=== PATIENT | male | born 1950 | race Caucasian/White ===

== ENCOUNTER 2016-10-24 13:16 | Inpatient (IN) | payer MEDICARE ==
[~2016-10-24] VITALS: Ht 172.7 cm; Wt 115.5 kg
[~2016-10-24 13:16] MED LIST: CHOL200047 PO; FUR20 PO; HYDR-4003 PO; LOPE2CAP PO; MULT1CAP33 PO; NADO80TA PO; SPIR50TA2 PO
[2016-10-24 13:23] VITALS: BP 151/103; PULSE 94; RESP 16; O2SAT 96
[2016-10-24] MEDS ORDERED: 0.9% Sodium Chloride 1,000 ML IV ONE (15:20)
[2016-10-24] MEDS ORDERED: Pantoprazole Inj 80 MG, Pharmacy To Mix 1 EA in 0.9% Sodium Chloride 80 ML IV ONE ×2 (15:20)
[2016-10-24] MEDS ORDERED: Pantoprazole 4 mg/mL 10 mL Inj IVPUSH ONE (15:20)
[2016-10-24] MEDS ORDERED: Octreotide Inj 500 MCG in 0.9% Sodium Chloride 100 ML IV ONE (15:20)
--- NOTE | 2016-10-24 15:23 | ED.REPORT ---
HPI-GI Bleed Date of Service Oct 24, 2016 ED Provider: Loki Garcia DO The patient is a 66 year old male with history of cirrhosis of his liver and kidneys, chronic kidney disease, coronary artery disease, hypertension, and GI bleed, who presents to the emergency department complaining of bloody emesis. The patient has had increasing abdominal bloating and nausea. He denies abdominal pain, fever, chills, diarrhea, bloody stools. He has been taking his medication as prescribed. His last colonoscopy was in 2010. He denies recent aspirin, Ibuprofen or steroid use. Nursing Notes Stated Complaint: VOMITTING BLOOD Chief Complaint: Male Abdominal Pain Nursing Notes Reviewed: Yes Allergies: Coded Allergies: Penicillins (Verified Allergy, Intermediate, Rash; hives, 06/07/14) lisinopril (Verified Adverse Reaction, Mild, Cough, 06/07/14) losartan (Verified Adverse Reaction, Mild, Muscle aches, 06/07/14) Scheduled Cholecalciferol (Vitamin D3) (Vitamin D3) 2,000 Unit Capsule 6,000 UNIT PO DAILY Furosemide (Furosemide) 20 Mg Tab 40 MG PO DAILY Multivitamin (Multivitamins) 1 Each Capsule 1 EACH PO DAILY Nadolol (Nadolol) 80 Mg Tablet 80 MG PO DAILY Spironolactone (Spironolactone) 50 Mg Tablet 50 MG PO DAILY Scheduled PRN Hydrocodone-Acetaminophen 5-325 mg (Hydrocodone-Acetaminophen 5-325 mg) 1 Each Tablet 1 EACH PO Q6 PRN PRN For Pain Loperamide (Loperamide) 2 Mg Capsule 2-4 MG PO BID PRN PRN For Diarrhea or Loose Stool General Time Seen by Provider: 15:00 Chief Complaint Chief Complaint: Vomiting blood Hx Obtained From: Patient Arrived By: Walk-in Onset Occurred: 9 - 12 hours ago Symptom Duration: Intermittent Progression Since Onset: Intermittent Severity: Current: No pain currently Severity: Maximum: No pain Recent Healthcare: No recent doctor visit, No recent hospitalization Similar Sx Previous: No Past Medical History Past Medical History Cirrhosis of the liver and kidney of unknown etiology Coronary artery disease Hypertension Chronic kidney disaese Past Surgical History Colonoscopy Family History Noncontributory Smoking History Never Smoker Social History Other Social History: Local resident Ambulatory Status Independent Review of Systems Review of Systems Note: +abdominal bloating Constitutional: Denies: Chills, Fever GI: Reports: Hematemesis, Nausea, Vomiting, Denies: Abdominal pain, Bloody/tarry stool, Diarrhea Complete sys rev & neg: except as marked. Physical Exam Initial Vital Signs Vital Signs (First) Date Time Temp Pulse Resp B/P Pulse Ox O2 Delivery O2 Flow Rate FiO2 10/24/16 13:23 37.3 94 16 151/103 96 Room Air 10/24/16 16:00 2 Initial VS: Reviewed Head / Eyes: Atraumatic, Normocephalic, PERRL ENT: Mucous membranes moist, Conjunctiva normal, No scleral icterus Neck: Supple, Non-tender, Full range of motion Lymphatic: No lymphadenopathy Extremities: Vascular intact, Neuro intact Skin: Warm, Dry, No cyanosis Neurologic: Alert, Oriented, Nonfocal Psychiatric: Mood/affect normal, Behavior normal, Normal thought content General/Constitutional: Awake, Alert Respiratory / Chest: Atraumatic, Breath sounds NL, Breath sounds = bilat, No respiratory distress, No rales, No rhonchi, No wheezing Cardiovascular: Heart rate NL, Regular rhythm, Heart sounds NL, No murmurs, No rubs Abdomen: Non-tender, No guarding, No rebound Bowel Sounds / Distention: Positive: Distention moderate Rectal for Blood: Positive: Blood - occult heme +, Maroon stool Interpretation & Diagnostics Lab Results Interpretation Result Diagram: 10/24/16 1620 10/24/16 1405 Test 10/24/16 14:05 10/24/16 16:20 White Blood Count 7.1th/mm3 (3.8-10.1) Red Blood Count 3.27mil/mm3 (4.40-5.80) Mean Corpuscular Volume 104.9fL (81-100) Mean Corpuscular Hemoglobin 34.3pg (27.0-35.0) Mean Corpuscular Hemoglobin Concent 32.7% (32.0-37.0) Red Cell Distribution Width 14.5% (12.3-15.4) Platelet Count 122bil/L (150-400) Neutrophils (%) (Auto) 80.7% (40-74) Lymphocytes (%) (Auto) 8.8% (14-46) Monocytes (%) (Auto) 9.4% (4-12) Eosinophils (%) (Auto) 0.7% (0-5) Basophils (%) (Auto) 0.1% (0-3) Prothrombin Time 15.5sec (8.1-12.5) Prothromb Time International Ratio 1.44ratio Sodium Level 139mEq/L (134-144) Potassium Level 4.1mEq/L (3.5-5.2) Chloride Level 102mEq/L (97-108) Carbon Dioxide Level 26mmol/L (18-29) Blood Urea Nitrogen 28mg/dL (8-27) Creatinine 2.40mg/dL (0.76-1.27) Estimat Glomerular Filtration Rate 29mL/min (>59) Glucose Level 111mg/dL (60-99) Calcium Level 8.3mg/dL (8.5-10.1) Total Bilirubin 3.6mg/dL (0.0-1.2) Aspartate Amino Transf (AST/SGOT) 30U/L (0-50) Alanine Aminotransferase (ALT/SGPT) 25U/L (0-44) Alkaline Phosphatase 97U/L (25-160) Total Protein 7.7g/dL (6.4-8.4) Albumin 2.1g/dL (3.4-5.0) Hold Rm Top Tube Received (Received) Hemoglobin 9.7g/dL (13.8-17.2) Hematocrit 30.0% (41.0-50.0) ECG Interpretation ECG Interpretation: Sinus rhythm Inferior Q waves Low voltage Otherwise unremarkable Time: 14:48 Interpreted by: ED physician Re-Eval/Medical Decision Med Decision/Clinical Course Upper GI bleed with known esophageal varices, Protonix and octreotide drips are initiated. GI was consulted and saw the patient in the emergency department. Patient will be admitted. Source of Hx: Old records Re-Evaluation/Progress #1: Time of Eval: 15:41 Re-Evaluation/Progress Note: Discussed plan for admission. Re-Evaluation/Progress #2: Time of Eval: 16:37 Re-Evaluation/Progress Note: Dr. Ramírez is evaluating the patient. Consultation #1: Referral / Consult Name: Jelani Miller MD Call Returned at: 16:11 Note: Spoke with the on-call gunner mate. Consultation #2: Referral / Consult Name: Jimmy Ramírez MD Consulted With: Hospitalist Call Returned at: 16:17 Slot Editor: Will see patient, Agrees with eval, Agrees with plan, Accepts admit Counseled Regarding: Diagnosis, Lab results, Need for admission Discharge & Departure Impression: Primary Impression: Upper GI bleed Disposition: ADMITTED TO HOSPITAL Discharge Condition All VS Reviewed: Yes Condition: Stable Referrals: Artem Campo MD (PCP) Scribe Attestation Portions of this note were transcribed by Toshia Bishop. I, Dr. Garcia personally performed the history, physical exam and medical decision-making; I reviewed and confirmed the accuracy of the information in the transcribed note. Signed by: Jj Dial, 10/24/16 and [id number]. copies to: Artem Campo MD, Timothy S DO Oct 24, 2016 15:23 Toshia Bishop Oct 24, 2016 15:42
[2016-10-24 15:37] LABS: BASOPHILS % (AUTO) 0.1 % (0-3); EOSINOPHILS % (AUTO) 0.7 % (0-5); MONOCYTES % (AUTO) 9.4 % (4-12); Mean Corpuscular Hemoglobin 34.3 pg (27.0-35.0); Mean Corpuscular Volume 104.9 fL (81-100); NEUTROPHILS % (AUTO) 80.7 % (40-74); Platelet Count 122 bil/L (150-400)
[2016-10-24 15:55] LABS: INR 1.44 ratio
[2016-10-24 16:00] VITALS: BP 132/82; PULSE 82; RESP 11; O2SAT 99
[2016-10-24] MEDS ORDERED: levoFLOXacin Inj 750 MG in IV Premix 1 EACH IV ONE (16:15)
[2016-10-24] MEDS ORDERED: Ondansetron 2 mg/mL 2 mL Inj IVPUSH PRN (17:05)
[2016-10-24] MEDS: Pantoprazole Inj 80 MG in 0.9% Sodium Chloride 80 ML IV SCH (17:05)
[2016-10-24] MEDS: Octreotide Inj 500 MCG in 0.9% Sodium Chloride 99 ML IV SCH (17:05)
--- NOTE | 2016-10-24 17:31 | PCM.HPMED ---
Subjective Date of Service Oct 24, 2016 Primary Provider: Admitting Physician: Jimmy Ramírez MD Primary Care Physician: Artem Campo MD Attending Physician: Jimmy Ramírez MD Admit Status: From the Emergency Department, Admit to [facility], [facility] Telemetry Chief Complaint: Hematemesis History of Present Illness: This is a 66-year-old male with a known history of varices. The patient presents with 3 episodes of vomiting blood this morning. This is all dark blood. No melena. Some abdominal discomfort. He denies feeling lightheaded. His hematocrit was around 27 in ED. He denies any chest pain or dyspnea. He has a history of cirrhosis which is of unclear etiology. He denies history of alcohol abuse. He does have severe ascites. He has had endoscopy confirmed varices in the past. He denies any recent vomiting this afternoon. His bowel signs are stable. GI is going to see the patient who is already on octreotide as well as Protonix drip. The patient denies any chest pain. He has never had paracentesis. He has been on liver transplant list for about 7 years. He notes progressive fatigue over the last several months to year. He does have some baseline depression. He has been for approximately 7 years. Review of Systems: He denies headache, hearing loss or visual changes. He denies any palpitations. He does have some orthopnea and chronic pedal edema. No hematuria or dysuria. All else is reviewed and otherwise unremarkable except as noted in the history of present illness Allergies Coded Allergies: Penicillins (Verified Allergy, Intermediate, Rash; hives, 06/07/14) lisinopril (Verified Adverse Reaction, Mild, Cough, 06/07/14) losartan (Verified Adverse Reaction, Mild, Muscle aches, 06/07/14) Home Medications Cholecalciferol (Vitamin D3) (Vitamin D3) 2,000 Unit Capsule 6,000 UNIT PO DAILY Furosemide (Furosemide) 20 Mg Tab 40 MG PO DAILY Multivitamin (Multivitamins) 1 Each Capsule 1 EACH PO DAILY Nadolol (Nadolol) 80 Mg Tablet 80 MG PO DAILY Spironolactone (Spironolactone) 50 Mg Tablet 50 MG PO DAILY Scheduled PRN Hydrocodone-Acetaminophen 5-325 mg (Hydrocodone-Acetaminophen 5-325 mg) 1 Each Tablet 1 EACH PO Q6 PRN PRN For Pain Loperamide (Loperamide) 2 Mg Capsule 2-4 MG PO BID PRN PRN For Diarrhea or Loose Stool PMH 1. Cirrhosis with known varices 2. Chronic kidney disease stage III. 3. CAD. 4. Hypertension Surgical History Colonoscopy Family History Adopted, not available Social History Hx Alcohol Use: No Hx Substance Use: No Hx Tobacco Use: No Smoking Status: Never Smoker Living Arrangement: Alone Exam Vital Signs Vital Sign - Last Date Time Temp Pulse Resp B/P Pulse Ox O2 Delivery O2 Flow Rate FiO2 10/24/16 16:00 82 11 132/82 99 Nasal Cannula 2 10/24/16 13:23 37.3 Exam O 3. No distress. Fluent speech. Normal skull. Anicteric sclera, symmetric pupils Normal nose and ears. Oropharynx unremarkable no facial droop. Neck is supple. Normal thyroid. No adenopathy. Lungs are clear, normal effort. Heart is regular without murmur gallop or rub Abdomen is massively distended. No guarding or rebound. He has a medusa capitus on the umbilicus. Extremities and gross edema. The radial pulses. Joints not swollen or deformed. Motor strength is unremarkable. Skin is mildly jaundiced. There is no ecchymosis or petechiae. Normal affect Lab and Diagnostics Result Diagram: 10/24/16 1620 10/24/16 1405 Assessment & Plan 1. Presumed esophageal bleed, POA. Patient will be placed on octreotide and Protonix strips. GI is going to see him today and will perform endoscopy within the next 12 hours. The patient is nothing by mouth. Fluid resuscitation with saline. Levofloxacin for prophylaxis given his chronic ascites. 2. Liver cirrhosis. POA. Follow clinically. 3. Acute blood loss anemia. POA. Serial hematocrits and transfuse as needed. 4. CAD. POA. Currently compensated. Hold antiplatelet agents and other medications at this point. 5. Hypertension. POA. Follow clinically. Patient is full resuscitation. Inpatient status with a length of stay of over 2 nights anticipated Pain Evaluation: Adequate Pain Control Resuscitation Status: CPR: Attempt Resuscitation Time spent 45 minutes Jimmy Ramírez MD Oct 24, 2016 17:31
[2016-10-24 18:16] VITALS: BP 106/76; PULSE 72; RESP 18; O2SAT 98
[2016-10-24 18:42] VITALS: PULSE 73
[2016-10-24 19:53] VITALS: BP 106/69; PULSE 70; RESP 13; O2SAT 98
[2016-10-24] MEDS: 0.9% Sodium Chloride 1,000 ML IV SCH (19:57)
--- NOTE | 2016-10-24 20:58 | CONS ---
[address] [address] CONSULTATION REPORT PATIENT: HAIDER BRITT : 1950 MR#: [id number] ADMIT: 10/24/2016 JOB ID: [id number] DATE OF SERVICE: 10/24/2016 GASTROENTEROLOGY CONSULTATION: REASON FOR CONSULTATION: Hematemesis. HISTORY OF PRESENT ILLNESS: A 66-year-old male with a history of cirrhosis of unknown cause, chronic kidney disease, coronary artery disease status post [place] in 1999, hypertension, on the liver transplant list per the patient with a MELD score of 24, decompensated cirrhosis with esophageal varices grade 2-3 seen on upper endoscopy on October 31, 2010, mild portal hypertensive gastropathy, and hiatal hernia, who presents for a consultation for hematemesis x1 day. The patient states he had three episodes of coffee-ground emesis. The patient denies rectal bleeding such as bright red blood per rectum or melena. The patient denies abdominal pain, change in bowel habits, or unintentional weight loss. The patient had a EGD, as stated, back on October 31, 2010, which showed grade 2-3 esophageal varices without evidence of bleeding, portal hypertensive gastropathy with superficial mucosal erosions, and a hiatal hernia. The patient states he had a colonoscopy three years ago which showed a precancerous polyp. I have no records. The patient denies family history of colon cancer, inflammatory bowel disease, or celiac disease. The patient was admitted and found to have a PT 15.5, INR 1.44, hemoglobin of 11.2, hematocrit of 34, MCV 104, platelet count 122, white count of 7.1. BUN 20, creatinine 2.4, albumin of 2.1, total bili 3.6. The patient presents for further evaluation. PAST MEDICAL HISTORY: As stated above. PAST SURGERIES: None. ALLERGIES: PENICILLIN, LISINOPRIL, LOSARTAN. MEDICATIONS AT HOME: vitamin D3, Lasix 40 mg by mouth once a day, multivitamin, nadolol 80 mg by mouth once a day, spironolactone 50 mg by mouth once a day. SOCIAL HISTORY: Never smoked. Unknown IV drug use. No alcohol history. FAMILY HISTORY: Negative for colon cancer. REVIEW OF SYSTEMS: The patient denies headache, blurred vision. Positive for hematemesis. No abdominal pain, skin rashes, or joint pain. PHYSICAL EXAMINATION: Vital signs upon presentation: Temperature is 37.3, pulse of 94, blood pressure 151/103, respiratory rate 16, saturating 96% room air. General: No acute distress. HEENT: Head: No scars. Eyes: Positive bilateral scleral icterus. Throat: Supple. Lungs: Clear to auscultation. Abdomen: Soft, mildly distended, nontender. Diffuse normoactive bowel sounds. Positive for ascites. Extremities: No cyanosis, clubbing, or edema. LABORATORIES: Show a white count 7.1, hemoglobin 11.2, hematocrit 34, MCV 104, platelet count 122. PT 15.5, INR 1.4. Sodium 139, potassium 4.1, chloride 102, bicarb 26, BUN 28, creatinine 2.4, glucose 111. Calcium 8.3, total bili 3.6, AST 30, ALT 24, alk phos 97, albumin 2.1. The patient's last CT of the abdomen and pelvis with contrast was performed on July 23, 2010, which showed moderate ascites in the abdomen and pelvis, diffuse colonic diverticulosis, prominent nodes, status post cholecystectomy in the past. The lymph nodes were in the subcarinal region in the paraesophageal area. ASSESSMENT: This is a 66-year-old male with a history of cirrhosis of unknown cause, MELD score of 24 currently, decompensated with ascites and esophageal varices grade 2-3, portal hypertension gastropathy seen on upper endoscopy in 2010, chronic kidney disease, on the liver transplant list, coronary artery disease, and hypertension who presents here for hematemesis x1 day. Differential diagnosis includes esophageal variceal bleed, versus peptic ulcer disease, versus portal hypertensive gastropathy. The patient also states that he is due for a colonoscopy. RECOMMENDATIONS: 1. NPO except for medications. 2. Protonix drip and octreotide drip. 3. Levaquin for SBP prophylaxis given the patient has cirrhosis and a GI bleed. 4. EGD and colonoscopy with anesthesia scheduled for tomorrow at 8:30 a.m. 5. Serial hematocrits and serial abdominal exams.
--- NOTE | 2016-10-24 21:27 | NUR ---
Transfer to 2030 Pt alert and oriented. Transfer care to [facility]. Pt transfer with all belongings and medications. IV fluids, Protonix and Ocreotide gtt infusing at this time. Pt denies any pain/discomfort. No c/o nausea or vomiting noted/reported.
[2016-10-24 22:50] VITALS: BP 110/74; PULSE 74; RESP 16; O2SAT 99
[2016-10-25] VITALS (10 sets, daily range): BP systolic 97–112; BP diastolic 57–68; PULSE 66–97; RESP 14–20; O2SAT 96–99
[2016-10-25] MEDS: Pantoprazole Inj 80 MG in 0.9% Sodium Chloride 80 ML IV SCH (01:36)
[2016-10-25] MEDS: Octreotide Inj 500 MCG in 0.9% Sodium Chloride 99 ML IV SCH ×2 (01:37→13:10)
--- NOTE | 2016-10-25 05:15 | NUR ---
Rest/Infusions Assumed care of patient at 2120. A&Ox3, STORY; cooperative and appropriate with care. Octreotide and protonix gtts continuing. Patient denies nausea, vomiting, abdominal pain. Notes that over the last several weeks he has noticed an increase in heartburn at home and has sometimes been doubling the dose of his Tums to treat it. Patient resting in room overnight. Continue to monitor.
[2016-10-25] MEDS: 0.9% Sodium Chloride 1,000 ML IV SCH ×2 (05:52→23:04)
[2016-10-25 05:56] LABS: Mean Corpuscular Volume 105.7 fL (81-100)
[2016-10-25 05:57] LABS: BASOPHILS % (AUTO) 0.7 % (0-3); EOSINOPHILS % (AUTO) 5.3 % (0-5); MONOCYTES % (AUTO) 10.6 % (4-12); Mean Corpuscular Hemoglobin 34.2 pg (27.0-35.0); NEUTROPHILS % (AUTO) 69.3 % (40-74); Platelet Count 84 bil/L (150-400)
[2016-10-25] MEDS ORDERED: Lactated Ringer's 1,000 ML IV ONE (08:28)
--- NOTE | 2016-10-25 08:28 | PCM.HPANE ---
Patient Data Surgeon Admitting Provider:Jimmy Ramírez MD Attending Provider:Jimmy Ramírez MD Primary Care Physician:Artem Campo MD Other Provider: Reason for Visit Upper Gi Bleed Ht/WT & BMI Height (Feet): 5 Height (Inches): 8 Weight (Kilograms): 115.500 Body Mass Index Allergies Coded Allergies: Penicillins (Verified Allergy, Intermediate, Rash; hives, 06/07/14) lisinopril (Verified Adverse Reaction, Mild, Cough, 06/07/14) losartan (Verified Adverse Reaction, Mild, Muscle aches, 06/07/14) Past Anesthesia History Anesthesia History: Denies:: Abnormal Airway, Anesthesia Reactions, Difficult Intubation Diabetes History Hx Diabetes?: No (borderline) MRSA MRSA: No Medications Hypertension Medication: Yes Home Meds Incl Beta Doc: Yes Date Beta Doc Taken: Oct 25, 2016 Time Beta Doc Taken: 08:00 Reported Medications Multivitamin (Multivitamins)1 Each Capsule1 Each PO DAILY 06/03/16 Cholecalciferol (Vitamin D3) (Vitamin D3)2,000 Unit Capsule6,000 Unit PO DAILY 06/03/16 Spironolactone 50 Mg [id number] Mg PO DAILY 06/02/16 Furosemide 20 Mg Tab40 Mg PO DAILY 06/02/16 Nadolol 80 Mg [id number] Mg PO DAILY 06/06/14 Loperamide 2 Mg Capsule2-4 Mg PO BID PRN For Diarrhea or Loose Stool 06/06/14 Hydrocodone-Acetaminophen 5-325 mg 1 Each Tablet1 Each PO Q6 PRN For Pain 06/06/14 History History of ENT Problems?: Yes HEENT History: Positive for:: Sinus Problem (sinus infection in the past) Denies:: Cataracts Dysphagia Hx of Heart Problems?: Yes Cardiovascular History: Positive for:: Cardiac Surgery (PCI to RCA 2000 post [place]) Hypertension Denies:: Chest Pain Congestive Heart Failure Edema Heart Murmur Irregular Heartbeat Pacemaker Thrombophlebitis Hx of Respiratory Problem?: Yes Respiratory History: Denies:: Asthma COPD Chest Surgery Dyspnea Emphysema Hemoptysis Pneumonia Tuberculosis Hx Neurologic Problems?: No Hx of GI Problems?: Yes Gastrointestinal History: Positive for:: Gastrointestinal Bleeding (with this admission; esophageal reflux) Hepatitis (Type A) Denies:: Diverticulitis Gastroesphageal Reflux Heartburn Hiatal Hernia Rectal Bleeding Other GI Pertinent History: liver cirrhosis, on transplant list Hx of Problems?: No Genitourinary History: Denies:: HX of Hemodialysis Kidney Stones Urinary Tract Infection HX of Peritoneal Dialysis: No Male Hx: Denies:: Prostate Problems Scrotal Mass Testicular Surgery Hx Musculoskeletal Problems?: Yes Musculoskeletal History: Positive for:: Back Injury (L5S1 herniated disc repair) Denies:: Joint Replacement Musculoskeletal Trauma Hx of Psycho/Social Problems?: Yes Psycho Social History: Positive for:: Hx Depression Denies:: Anxiety Bipolar Disorder Suicide Attempt Hx Surgeries?: Yes (gall bladder, back sry) Hx Any Other Health Problems?: Yes Other History: Positive for:: Cancer (Skin) Hospitalization (gall bladder; herniated disc lumbar; GI bleed) Denies:: Endocrine Disease Thyroid Disease History Blood Transfusions: Positive for:: Accept Blood Products? Blood Transfusions Denies:: Blood Transfuse Reaction Hx Diabetes: No (borderline) Hx Alcohol Use: NoHx Substance Use: No Smoking Status: Never Smoker Have You Smoked inLast 12 mo: No Stop/Bang Treated for Sleep Apnea?: No Do You Have a CPAP Machine?: No S-Snoring: Do You Snore Loudly: No T-Tired: feel tired, fatigued: Yes O-Obsered: Observed not breath: No P-Blood Pressure: treated: Yes B- Body Mass Index > 35 kg/m2: Yes A- Age over 50: Yes N- Neck Large Circumference: No G- Gender Male: Yes LATRELL Total Score: 5 LATRELL Risk Assessment: High Risk, =/>3 Yes LATRELL Category 4 OutPt Procedure: Yes Risk Assessment Category Category 1A: Patient has history of documented sleep apnea, and HAS NOT received any narcotic, sedative or anesthesia administration during this stay. Category 1B: Patient has history of documented sleep apnea, and HAS received any narcotic , sedative or anesthesia administration during this stay Category 2: Patient has SUSPECTED Obstructive Sleep Apnea, and HAS received any narcotic , sedative or anesthesia administration during this stay. Category 3: Patient has SUSPECTED Obstructive Sleep Apnea and HAS NOT received narcotic, sedative or anesthesia administration during this stay. Category 4: Outpatient in Procedural Areas with known sleep apnea or who screen positive for High Risk via the STOP/BANG questionnaire. Exam Exam Vital Signs Vital Signs Date Time Temp Pulse Resp B/P Pulse Ox O2 Delivery O2 Flow Rate FiO2 10/25/16 07:58 Supplement Oxygen 10/25/16 07:58 37.6 68 18 108/66 98 Room Air 10/25/16 04:46 69 10/25/16 03:10 36.6 97 16 112/62 98 Room Air General Appearance: Alert, Oriented X3, Cooperative, No Acute Distress HEENT/AIRWAY: MP 2 Lungs: Clear to Auscultation, Normal Air Movement Heart: Exam Unremarkable, Regular Rate/Rhythm, No Murmurs/Rubs/Gallops Meds/Labs/Diagnostics Admission Meds Current Medications Pantoprazole 80 mg 80 mg STAT ONCE IVPUSH Last administered on 10/24/16at 15: 42; Start 10/24/16 at 15:20; Stop 10/24/16 at 15:21; Status DC Pantoprazole/ Miscellaneous/ Sodium Chloride (Protonix Inj/ Pharmacy To Mix/ Normal Saline) 100 ml @ 10 mls/hr ONCE ONCE IV Last administered on at 17:00; Start 10/24/16 at 15:20; Stop 10/25/16 at 01:19; Status DC Octreotide Acetate 50 mcg 50 mcg ONCE ONCE IVPUSH Last administered on at 16:25; Start 10/24/16 at 15:20; Stop 10/24/16 at 15:21; Status DC Octreotide Acetate 500 mcg/ Sodium Chloride 101 ml @ 10.1 mls/hr ONCE ONCE IV Last administered on 10/24/16at 16:40; Start 10/24/16 at 15:20; Stop at 01:19; Status DC Sodium Chloride 1,000 ml @ 0 mls/hr Q0M ONCE IV Last administered on at 15:42; Start 10/24/16 at 15:20; Stop 10/24/16 at 15:21; Status DC Levofloxacin/ Dextrose 750 mg/ Premix 150 ml @ 100 mls/hr ONCE ONCE IV Last administered on 10/24/16at 17:04; Start 10/24/16 at 16:15; Stop 10/24/16 at 17 :44; Status DC Sodium Chloride 1,000 ml @ 100 mls/hr Q10H IV Last administered on 10/25/16at 05:52; Start 10/24/16 at 17:04 Octreotide Acetate 500 mcg/ Sodium Chloride 100 ml @ 10 mls/hr Q10H IV Last administered on 10/25/16at 01:37; Start 10/24/16 at 17:05 Pantoprazole/ Sodium Chloride (Protonix Inj/ Normal Saline) 100 ml @ 10 mls/hr Q10H IV Last administered on 10/25/16at 01:36; Start 10/24/16 at 17:05 Labs Test 10/24/16 14:05 10/25/16 05:20 Prothrombin Time 15.5sec (8.1-12.5) Prothromb Time International Ratio 1.44ratio Hold Rm Top Tube Received (Received) White Blood Count 4.2th/mm3 (3.8-10.1) Red Blood Count 2.81mil/mm3 (4.40-5.80) Hemoglobin 9.6g/dL (13.8-17.2) Hematocrit 29.7% (41.0-50.0) Mean Corpuscular Volume 105.7fL (81-100) Mean Corpuscular Hemoglobin 34.2pg (27.0-35.0) Mean Corpuscular Hemoglobin Concent 32.3% (32.0-37.0) Red Cell Distribution Width 14.1% (12.3-15.4) Platelet Count 84bil/L (150-400) Neutrophils (%) (Auto) 69.3% (40-74) Lymphocytes (%) (Auto) 14.1% (14-46) Monocytes (%) (Auto) 10.6% (4-12) Eosinophils (%) (Auto) 5.3% (0-5) Basophils (%) (Auto) 0.7% (0-3) Sodium Level 141mEq/L (134-144) Potassium Level 4.7mEq/L (3.5-5.2) Chloride Level 107mEq/L (97-108) Carbon Dioxide Level 25mmol/L (18-29) Blood Urea Nitrogen 34mg/dL (8-27) Creatinine 2.79mg/dL (0.76-1.27) Estimat Glomerular Filtration Rate 24mL/min (>59) Glucose Level 84mg/dL (60-99) Calcium Level 7.7mg/dL (8.5-10.1) Total Bilirubin 3.7mg/dL (0.0-1.2) Aspartate Amino Transf (AST/SGOT) 24U/L (0-50) Alanine Aminotransferase (ALT/SGPT) 18U/L (0-44) Alkaline Phosphatase 77U/L (25-160) Total Protein 6.5g/dL (6.4-8.4) Albumin 1.8g/dL (3.4-5.0) Plan Impression Patient chart reviewed, patient interviewed and anesthestic plan with risks, benefits, and alternatives discussed, and informed consent obtained. ASA Physical Status: ASA3 Severe Disease (GI bleeding) Anesthetic Plan: MAC Bene/Risks/Altern/Consents: Yes HP Complete Prior to Induction: Yes Mckinley Morales MD Oct 25, 2016 08:28
--- NOTE | 2016-10-25 10:40 | ENDO ---
[address] [address] ENDOSCOPY PROCEDURE PATIENT: HAIDER BRITT : 1950 MR#: [id number] ADMIT: 10/24/2016 JOB ID: [id number] DATE: 10/25/2016 TYPE OF OPERATION: Esophagogastroduodenoscopy with biopsy. PREOPERATIVE DIAGNOSIS: Gastrointestinal bleed. POSTOPERATIVE DIAGNOSIS(ES): 1. Grade 2 esophageal varices without recent stigmata of bleed or red jaclyn sign. 2. Distal erosive esophagitis. 3. Esophageal ulcer, clean based, nonbleeding. 4. Mild portal hypertensive gastropathy. 5. Mild nonerosive gastritis. 6. No gastric varices were seen. ANESTHESIA: Monitored anesthesia care. COMPLICATION: None. ESTIMATED BLOOD LOSS: Minimal. DESCRIPTION OF PROCEDURE: After risks and benefits were explained to the patient, informed consent was obtained. After anesthesia administered, upper endoscope was inserted into the mouth, intubated into the esophagus, stomach, second portion of duodenum. Mucosa carefully examined. After the procedure was done, the scope was withdrawn and the procedure terminated. FINDINGS: Upon inspection of the esophagus, there was mild distal esophagitis along with a clean based, nonbleeding, 1 cm ulcer in the distal esophagus. There was also grade 2 esophageal varices that were seen without red jaclyn sign without stigmata of recent bleed. The Z-line located 40 cm from incisors. Upon entering the stomach, there is mild nonerosive gastritis that was seen. No masses, ulcers were seen. Mild portal hypertension gastropathy were seen. Retroflexion showed no gastric varices. Duodenal bulb, first and second portion were normal. Biopsies taken from antrum and body of the stomach. IMPRESSIONS: 1. Distal esophageal ulcer, 1 cm, clean based, nonbleeding. 2. Distal esophagitis. 3. Grade 2 esophageal varices without recent stigmata of bleed. No red jaclyn sign. 4. Mild for portal hypertensive gastropathy. 5. Mild nonerosive gastritis. 6. No gastric varices were seen. RECOMMENDATION: 1. Stop Protonix drip. 2. Start Protonix 40 mg by mouth twice a day. 3. Start Carafate 1 g by mouth four times a day. 4. GoLYTELY prep for tonight for a colonoscopy tomorrow. 5. Okay to start clear liquid diet.
[2016-10-25] MEDS ORDERED: Ketamine 10 mg/mL 20 mL Inj ONE (11:19)
--- NOTE | 2016-10-25 12:28 | PCM.PNMED ---
Subjective Date of Service Oct 25, 2016 Subjective Feeling well. No further upper GI bleeding. She had 1 small bowel movement yesterday. Chronic abdominal distention. No abdominal pain. No fevers or chills. He is scheduled for upper endoscopy today. No history of esophageal varices. No difficulty with urination. No cough or dyspnea. Exam Vital Signs Vital Sign - Last Date Time Temp Pulse Resp B/P Pulse Ox O2 Delivery O2 Flow Rate FiO2 10/25/16 09:50 68 15 97/57 98 Room Air 10/25/16 07:58 37.6 10/24/16 16:00 2 Intake and Output 10/24/16 10/24/16 10/25/16 Cumulative From/Thru 15:00 23:00 07:00 10/24/16 13:23 - 10/25/16 05:53 Intake Total 1000 ml 1169 ml 2169 ml Output Total 650 ml 650 ml Balance 1000 ml 519 ml 1519 ml Intake Oral 0 ml 0 ml IV Total 1000 ml 1169 ml 2169 ml Output Urine Total 650 ml 650 ml # Voids 1 1 Exam Alert oriented 3. No distress. Pleasant affect. Normal skull. Anicteric sclerae, symmetric pupils Oropharynx unremarkable Lungs are clear with normal effort Heart is regular without murmur. Abdomen is grossly distended with ascites. Nontender. Extremities are notable for 2+ edema. IVs and Medications Medications Reviewed: Medications were reviewed in detail Lab and Diagnostics Result Diagram: 10/25/1651910/25/16519 Assessment & Plan 1. Presumed variceal bleed (H/O esophageal varices), POA. The patient was stable overnight on actually attending a Protonix drip. He is also on levofloxacin for SBP prophylaxis. Serial crits remained stable. Plan is for endoscopy this morning. 2. Liver cirrhosis. POA. Follow clinically. No evidence of acute decompensation. No evidence of encephalopathy. 3. Acute blood loss anemia. POA. Serial hematocrits and transfuse as needed. The patient maintained a reasonable hematocrit at this point and not require blood products. 4. CAD. POA. Currently compensated. Hold antiplatelet agents and other medications at this point. 5. Hypertension. POA. Follow clinically. 6. Gross ascites. POA. This is stable and asymptomatic. Patient is full resuscitation. Inpatient status with a length of stay of over 2 nights anticipated Pain Evaluation: Adequate Pain Control VTE Mechanical Devices: Intermittant Pneumatic CD Resuscitation Status: CPR: Attempt Resuscitation Time spent 25 minutes Jimmy Ramírez MD Oct 25, 2016 12:28
[2016-10-25] MEDS: Sucralfate 1,000 mg Tablet PO SCH ×3 (13:05→21:44)
--- NOTE | 2016-10-25 13:12 | NUR ---
Endo Patient off floor at approximately 0915 for Endo procedure.
--- NOTE | 2016-10-25 13:13 | NUR ---
Returned from Endo Patient returned from Endo at approximately 1000. Vital signs stable.
[2016-10-25] MEDS ORDERED: Propofol 10,000 mCg/mL 20 mL Inj ONE (14:53)
[2016-10-25] MEDS ORDERED: EPHEDrine/NS 5 mg/mL 5 mL Syringe ONE (14:53)
[2016-10-25] MEDS ORDERED: PEG/Electrolytes 4,000 mL Solution PO ONE (16:00)
--- NOTE | 2016-10-25 18:39 | NUR ---
Endoscopy Patient prepping for lower endoscopy at 0900, 10/26/16, patient states he is getting nauseous per PERSONNEL ADVISER. Instructed patient to slow down a bit and pace himself.
--- NOTE | 2016-10-25 18:47 | NUR ---
Mentation Patient cooperative with care, full conversations, laughing and smiling this shift. stated his is night and day compared to yesterday with attitude and conversations. Addendum: 10/25/16 at 1850 by SHONDA CHRISTINE RN Charted on wrong patient
[2016-10-25] MEDS: Pantoprazole 40 mg ER24 Tablet PO SCH (20:54)
[2016-10-26] VITALS (8 sets, daily range): BP systolic 75–118; BP diastolic 51–75; PULSE 60–78; RESP 11–18; O2SAT 96–100
[2016-10-26] MEDS: 0.9% Sodium Chloride 1,000 ML IV SCH ×2 (01:35→09:04)
[2016-10-26] MEDS: Octreotide Inj 500 MCG in 0.9% Sodium Chloride 99 ML IV SCH (01:40)
--- NOTE | 2016-10-26 06:19 | NUR ---
Bowel Prep Patient completing bowel prep overnight for lower GI study in the morning. Denies nausea, abdominal pain. As of 619, stools still have some brown coloration but completely liquid. Patient encouraged to continue drinking the prep and to call for assistance if he requires any additional help getting to the bedside commode. Patient verbalized understanding, continue to monitor.
--- NOTE | 2016-10-26 07:36 | NUR ---
Bowel Prep Patient only finished half of bowel prep, still drinking through pm shift. Bowels brown with small chunks. Notified charge rn. Left voicemail at [facility] at approximately 0730.
[2016-10-26] MEDS ORDERED: levoFLOXacin Inj 750 MG in IV Premix 1 EACH IV SCH (08:30)
--- NOTE | 2016-10-26 08:41 | NUR ---
Social Work: Initial Assessment D: Per EMR review, pt is a 66 year old male admitted for Upper GI Bleed. Pt is [employer] Medicare with no LTC insurance or VA benefits. PCP is Artem Campo MD. NOK is Carmendejah Patterson, Dtr, . Pt states he has completed advanced directives-not on file, COMPOSITE LAYUP WORKER requested these from pt. Readmit score is moderate, 3/8. COMPOSITE LAYUP WORKER met with pt at bedside. Sw role explained. See initial assessment. Pt lives alone in [place]. Pt is I at baseline, he uses no DME but owns a cane, walker and electric scooter (left over from his late and mother). Pt states that he has good support from his daughter who lives locally and neighbors. Pt denies any history of HH or skilled rehab. Pt has been ambulating I during admission and anticipates discharge home with no needs once medically ready. Pt's daughter or neighbors will transport. A: Pt who is I at baseline. P: Anticipate pt to discharge home via POV; No sw needs identified at this time. COMPOSITE LAYUP WORKER to continue to follow if needs arise. JUAN PABLO Rosenberg Addendum: 10/26/16 at 0845 by DEWAYNE CHAUDHRY Amended: Links added.
[2016-10-26] MEDS: Sucralfate 1,000 mg Tablet PO SCH ×2 (11:30→16:01)
[2016-10-26 13:38] LABS: INR 1.57 ratio
[2016-10-26] MEDS ORDERED: Lactated Ringer's 1,000 ML IV ONE (13:49)
--- NOTE | 2016-10-26 13:51 | PCM.HPANE ---
Patient Data Surgeon Admitting Provider:Jimmy Ramírez MD Attending Provider:Jimmy Ramírez MD Primary Care Physician:Artem Campo MD Other Provider: Reason for Visit Upper Gi Bleed Ht/WT & BMI Height (Feet): 5 Height (Inches): 8.00 Weight (Kilograms): 115.500 Body Mass Index 38.00 Allergies Coded Allergies: Penicillins (Verified Allergy, Intermediate, Rash; hives, 06/07/14) lisinopril (Verified Adverse Reaction, Mild, Cough, 06/07/14) losartan (Verified Adverse Reaction, Mild, Muscle aches, 06/07/14) Past Anesthesia History Anesthesia History: Denies:: Abnormal Airway, Anesthesia Reactions, Difficult Intubation Diabetes History Hx Diabetes?: No (borderline) MRSA MRSA: No Medications Hypertension Medication: Yes Home Meds Incl Beta Doc: Yes Date Beta Doc Taken: Oct 25, 2016 Time Beta Doc Taken: 0800 Reported Medications Multivitamin (Multivitamins)1 Each Capsule1 Each PO DAILY 06/03/16 Cholecalciferol (Vitamin D3) (Vitamin D3)2,000 Unit Capsule6,000 Unit PO DAILY 06/03/16 Spironolactone 50 Mg Usncls10 Mg PO DAILY 06/02/16 Furosemide 20 Mg Tab40 Mg PO DAILY 06/02/16 Nadolol 80 Mg [id number] Mg PO DAILY 06/06/14 Loperamide 2 Mg Capsule2-4 Mg PO BID PRN For Diarrhea or Loose Stool 06/06/14 Hydrocodone-Acetaminophen 5-325 mg 1 Each Tablet1 Each PO Q6 PRN For Pain 06/06/14 History History of ENT Problems?: Yes HEENT History: Positive for:: Sinus Problem (sinus infection in the past) Denies:: Abnormal Airway Cataracts Difficult Intubation Dysphagia Hx of Heart Problems?: Yes Cardiovascular History: Positive for:: Cardiac Surgery (PCI to RCA 2000 post ND) Hypertension Denies:: Chest Pain Congestive Heart Failure Edema Heart Murmur Irregular Heartbeat Pacemaker Thrombophlebitis Hx of Respiratory Problem?: Yes Respiratory History: Denies:: Asthma COPD Chest Surgery Dyspnea Emphysema Hemoptysis Pneumonia Tuberculosis Hx Neurologic Problems?: No Hx of GI Problems?: Yes Gastrointestinal History: Positive for:: Gastrointestinal Bleeding (with this admission; esophageal reflux) Hepatitis (Type A) Denies:: Diverticulitis Gastroesphageal Reflux Heartburn Hiatal Hernia Rectal Bleeding Other GI Pertinent History: liver cirrhosis, on transplant list Hx of Problems?: No Genitourinary History: Denies:: HX of Hemodialysis Kidney Stones Urinary Tract Infection HX of Peritoneal Dialysis: No Male Hx: Denies:: Prostate Problems Scrotal Mass Testicular Surgery Hx Musculoskeletal Problems?: Yes Musculoskeletal History: Positive for:: Back Injury (L5S1 herniated disc repair) Denies:: Joint Replacement Musculoskeletal Trauma Hx of Psycho/Social Problems?: Yes Psycho Social History: Positive for:: Hx Depression Denies:: Anxiety Bipolar Disorder Suicide Attempt Hx Surgeries?: Yes (gall bladder, back sry) Hx Any Other Health Problems?: Yes Other History: Positive for:: Cancer (Skin) Hospitalization (gall bladder; herniated disc lumbar; GI bleed) Denies:: Endocrine Disease Thyroid Disease History Blood Transfusions: Positive for:: Accept Blood Products? Blood Transfusions Denies:: Blood Transfuse Reaction Hx Diabetes: No (borderline) Hx Alcohol Use: NoHx Substance Use: No Smoking Status: Never Smoker Have You Smoked inLast 12 mo: No Stop/Bang Treated for Sleep Apnea?: No Do You Have a CPAP Machine?: No S-Snoring: Do You Snore Loudly: No T-Tired: feel tired, fatigued: Yes O-Obsered: Observed not breath: No P-Blood Pressure: treated: Yes B- Body Mass Index > 35 kg/m2: Yes A- Age over 50: Yes N- Neck Large Circumference: No G- Gender Male: Yes LATRELL Total Score: 5 LATRELL Risk Assessment: High Risk, =/>3 Yes LATRELL Category 4 OutPt Procedure: Yes Risk Assessment Category Category 1A: Patient has history of documented sleep apnea, and HAS NOT received any narcotic, sedative or anesthesia administration during this stay. Category 1B: Patient has history of documented sleep apnea, and HAS received any narcotic , sedative or anesthesia administration during this stay Category 2: Patient has SUSPECTED Obstructive Sleep Apnea, and HAS received any narcotic , sedative or anesthesia administration during this stay. Category 3: Patient has SUSPECTED Obstructive Sleep Apnea and HAS NOT received narcotic, sedative or anesthesia administration during this stay. Category 4: Outpatient in Procedural Areas with known sleep apnea or who screen positive for High Risk via the STOP/BANG questionnaire. High Risk, =/>3 Yes Exam Exam Vital Signs Vital Signs Date Time Temp Pulse Resp B/P Pulse Ox O2 Delivery O2 Flow Rate FiO2 10/26/16 11:40 36.6 65 16 118/62 99 Room Air 10/26/16 08:22 Supplement Oxygen 10/26/16 08:22 36.3 78 18 102/75 100 Room Air 10/26/16 08:00 62 General Appearance: Alert, Oriented X3, Cooperative HEENT/AIRWAY: MP 3 Lungs: Normal Air Movement Heart: Exam Unremarkable Meds/Labs/Diagnostics Admission Meds Current Medications Pantoprazole (Protonix) 40 mg BID PO Last administered on 10/25/16at 20:54; Start 10/25/16 at 20:30 Polyethylene Glycol/ Electrolytes (Colyte) 4,000 ml ONCE ONCE PO Last administered on 10/25/16at 16:00; Start 10/25/16 at 16:00; Stop 10/25/16 at 16 :01; Status DC Labs Test 10/24/16 14:05 10/25/16 05:20 10/26/16 12:45 Hold Rm Top Tube Received (Received) White Blood Count 4.2th/mm3 (3.8-10.1) Red Blood Count 2.81mil/mm3 (4.40-5.80) Hemoglobin 9.6g/dL (13.8-17.2) Hematocrit 29.7% (41.0-50.0) Mean Corpuscular Volume 105.7fL (81-100) Mean Corpuscular Hemoglobin 34.2pg (27.0-35.0) Mean Corpuscular Hemoglobin Concent 32.3% (32.0-37.0) Red Cell Distribution Width 14.1% (12.3-15.4) Platelet Count 84bil/L (150-400) Neutrophils (%) (Auto) 69.3% (40-74) Lymphocytes (%) (Auto) 14.1% (14-46) Monocytes (%) (Auto) 10.6% (4-12) Eosinophils (%) (Auto) 5.3% (0-5) Basophils (%) (Auto) 0.7% (0-3) Sodium Level 141mEq/L (134-144) Potassium Level 4.7mEq/L (3.5-5.2) Chloride Level 107mEq/L (97-108) Carbon Dioxide Level 25mmol/L (18-29) Blood Urea Nitrogen 34mg/dL (8-27) Creatinine 2.79mg/dL (0.76-1.27) Estimat Glomerular Filtration Rate 24mL/min (>59) Glucose Level 84mg/dL (60-99) Calcium Level 7.7mg/dL (8.5-10.1) Total Bilirubin 3.7mg/dL (0.0-1.2) Aspartate Amino Transf (AST/SGOT) 24U/L (0-50) Alanine Aminotransferase (ALT/SGPT) 18U/L (0-44) Alkaline Phosphatase 77U/L (25-160) Total Protein 6.5g/dL (6.4-8.4) Albumin 1.8g/dL (3.4-5.0) Prothrombin Time 16.9sec (8.1-12.5) Prothromb Time International Ratio 1.57ratio Plan Impression Patient chart reviewed, patient interviewed and anesthestic plan with risks, benefits, and alternatives discussed, and informed consent obtained. ASA Physical Status: ASA3 Severe Disease Anesthetic Plan: GA Bene/Risks/Altern/Consents: Yes HP Complete Prior to Induction: Yes Jonh Wilde MD Oct 26, 2016 13:51
--- NOTE | 2016-10-26 15:00 | NUR ---
Back from Endo Patient back from Endo at approximately 1445. AOx3 resting. Stated he is ready to go home.
[2016-10-26] MEDS: Pantoprazole 40 mg ER24 Tablet PO SCH (16:01)
--- NOTE | 2016-10-26 16:07 | PCM.DIMED ---
Discharge Instructions Date of Service Oct 26, 2016 Dates of Hospitalization Oct 24, 2016 at 16:35 Discharge Diagnosis Discharge Diagnosis 1. Grade 2 esophageal varices 2. Esophageal ulcer 3. Erosive esophagitis 4. Cirrhosis 5. Anasarca and Ascites (chronic) 6. Upper GI bleed. 7. Mild acute blood loss anemia Diet Other (Mechanical soft. ) Activity No restrictions Call your provider Fever or Chills, Bleeding Patient Instructions Dr Gonzáles within 2 weeks Follow-up with PCP in: 1 week Jimmy Ramírez MD Oct 26, 2016 16:06
[2016-10-26] MEDS ORDERED: SUCR1TAB30 PO (16:08)
[2016-10-26] MEDS ORDERED: PANT40TA3 PO (16:08)
--- NOTE | 2016-10-26 16:46 | ENDO ---
[address] [address] ENDOSCOPY PROCEDURE PATIENT: HAIDER BRITT : 1950 MR#: [id number] ADMIT: 10/24/2016 JOB ID: [id number] TYPE OF OPERATION: Colonoscopy. PREOPERATIVE DIAGNOSIS: Gastrointestinal bleed. POSTOPERATIVE DIAGNOSES: 1. Small internal hemorrhoids. 2. Sigmoid diverticulosis. ANESTHESIA: Monitored anesthesia care. COMPLICATIONS: None. BLOOD LOSS: Minimal. DESCRIPTION OF PROCEDURE: After risks and benefits explained to the patient, informed consent was obtained. After anesthesia administered, colonoscope was then inserted from the rectum to the terminal ileum and mucosa carefully examined. Prep of the patient was excellent. After procedure done, the scope was withdrawn and the procedure terminated. FINDINGS: Upon inspection of the anus, no masses, hemorrhoids, ulcers, or fissures were seen throughout the entire examination. There was scattered nonbleeding sigmoid diverticulosis. There were no polyps or masses that were seen. The scope was then advanced into the terminal ileum in which no blood was seen. Retroflexion of the rectum showed small internal hemorrhoids. IMPRESSION: 1. Small internal hemorrhoids. 2. Sigmoid diverticulosis, mild, nonbleeding RECOMMENDATIONS: 1. High-fiber diet. Okay to discharge home. 2. Discharge today. 3. Stop octreotide drip. 4. We will sign off.
[2016-10-26] MEDS ORDERED: Propofol 10,000 mCg/mL 20 mL Inj ONE (18:20)
[2016-10-26] MEDS ORDERED: fentaNYL-PF 50 mCg/mL 2 mL Inj ONE (18:20)
[2016-10-26] MEDS ORDERED: Ketamine 10 mg/mL 20 mL Inj ONE (18:20)
--- NOTE | 2016-10-26 18:24 | NUR ---
Discharge Patient discharged at approximately 1815 to home with daughter. Patient given discharge packet with next dose to be taken clearly written and dated, followup appointment information and two new prescriptions. IVs DC'd with catheters intact, tele DC'd emergency medical technician notified. Patient acknowledged and understood all information. Patient left with all belongings. Patient escorted to the door by PIT LABORER in wheelchair.
--- NOTE | 2016-10-27 07:20 | PCM.DC.MED ---
Discharge Summary Date of Service Oct 26, 2016 Dates of Hospitalization Date of Hospital Admission 10/25/2016 at 16:35 Date of Discharge: Oct 26, 2016 Providers: Admitting Physician: Sorin Sullivan MD Primary Care Physician: Artem Campo MD Attending Physician: Sorin Sullivan MD Diagnosis at Time of Discharge Diagnosis at Time of Discharge 1. Grade 2 esophageal varices 2. Esophageal ulcer 3. Erosive esophagitis 4. Cirrhosis 5. Anasarca and Ascites (chronic) 6. Upper GI bleed. 7. Mild acute blood loss anemia Consultations Gastroenterology (Dr Miller) Procedures Invasive Procedures Upper endoscopy October 25. Findings included grade 2 esophageal varices without stigmata of bleeding, esophageal ulcer. Portal gastropathy. Distal esophagitis, erosive. Colonoscopy October 26. Findings, unremarkable Brief History This is a 66-year-old male with a known history of varices. The patient presents with 3 episodes of vomiting blood this morning. This is all dark blood. No melena. Some abdominal discomfort. He denies feeling lightheaded. His hematocrit was around 27 in ED. He denies any chest pain or dyspnea. He has a history of cirrhosis which is of unclear etiology. He denies history of alcohol abuse. He does have severe ascites. He has had endoscopy confirmed varices in the past. He denies any recent vomiting this afternoon. His bowel signs are stable. GI is going to see the patient who is already on octreotide as well as Protonix drip. The patient denies any chest pain. He has never had paracentesis. He has been on liver transplant list for about 7 years. He notes progressive fatigue over the last several months to year. He does have some baseline depression. He has been for approximately 7 years. Hospital Course 1. Presumed variceal bleed (H/O esophageal varices), POA. The patient was stable overnight on actually attending a Protonix drip. He is also on levofloxacin for SBP prophylaxis. Serial crits remained stable. Plan is for endoscopy this morning. 2. Liver cirrhosis. POA. Follow clinically. No evidence of acute decompensation. No evidence of encephalopathy. 3. Acute blood loss anemia. POA. Serial hematocrits and transfuse as needed. The patient maintained a reasonable hematocrit at this point and not require blood products. 4. CAD. POA. Currently compensated. Hold antiplatelet agents and other medications at this point. 5. Hypertension. POA. Follow clinically. 6. Gross ascites. POA. This is stable and asymptomatic. Patient is full resuscitation. Hospital course. This is a very pleasant 66-year-old gentleman with a history of idiopathic cirrhosis. This is likely steatohepatitis. Any case he presented with upper GI bleed with recurrent hematemesis and context of known esophageal varices. He was admitted a pro time was checked was within normal limits. His hematocrit dropped from 34-29 indicative of a mild acute blood loss anemia. The patient required no transfusion. He was initially treated empirically with pantoprazole and octreotide. He underwent endoscopy which ruled out esophageal variceal bleeding and indicated an ulcer which may been the source. The patient had octreotide stopped. He had a diet advanced. He did undergo colonoscopy which is fairly unremarkable. After this he is felt to be stable for discharge. The patient was given levofloxacin for SBP. Prophylaxis while in the hospital. Exam Vital Signs (Last) Date Time Temp Pulse Resp B/P Pulse Ox O2 Delivery O2 Flow Rate FiO2 10/26/16 16:00 36.8 63 15 96/59 98 Room Air 10/26/16 14:32 2 Exam Alert oriented no acute distress Fluent speech Lungs are clear, normal effort Heart is regular without murmur Abdomen is distended. No guarding or rebound. Extremities a 2+ edema. Patient does have chronic anasarca. Test 10/24/16 14:05 10/25/16 05:20 10/26/16 12:45 Hold Rm Top Tube Received (Received) White Blood Count 4.2th/mm3 (3.8-10.1) Red Blood Count 2.81mil/mm3 (4.40-5.80) Hemoglobin 9.6g/dL (13.8-17.2) Hematocrit 29.7% (41.0-50.0) Mean Corpuscular Volume 105.7fL (81-100) Mean Corpuscular Hemoglobin 34.2pg (27.0-35.0) Mean Corpuscular Hemoglobin Concent 32.3% (32.0-37.0) Red Cell Distribution Width 14.1% (12.3-15.4) Platelet Count 84bil/L (150-400) Neutrophils (%) (Auto) 69.3% (40-74) Lymphocytes (%) (Auto) 14.1% (14-46) Monocytes (%) (Auto) 10.6% (4-12) Eosinophils (%) (Auto) 5.3% (0-5) Basophils (%) (Auto) 0.7% (0-3) Sodium Level 141mEq/L (134-144) Potassium Level 4.7mEq/L (3.5-5.2) Chloride Level 107mEq/L (97-108) Carbon Dioxide Level 25mmol/L (18-29) Blood Urea Nitrogen 34mg/dL (8-27) Creatinine 2.79mg/dL (0.76-1.27) Estimat Glomerular Filtration Rate 24mL/min (>59) Glucose Level 84mg/dL (60-99) Calcium Level 7.7mg/dL (8.5-10.1) Total Bilirubin 3.7mg/dL (0.0-1.2) Aspartate Amino Transf (AST/SGOT) 24U/L (0-50) Alanine Aminotransferase (ALT/SGPT) 18U/L (0-44) Alkaline Phosphatase 77U/L (25-160) Total Protein 6.5g/dL (6.4-8.4) Albumin 1.8g/dL (3.4-5.0) Prothrombin Time 16.9sec (8.1-12.5) Prothromb Time International Ratio 1.57ratio Discharge Medications Discharge Medications Cholecalciferol (Vitamin D3) (Vitamin D3) 2,000 Unit Capsule 6,000 UNIT PO DAILY (Reported) Furosemide (Furosemide) 20 Mg Tab 40 MG PO DAILY (Reported) Multivitamin (Multivitamins) 1 Each Capsule 1 EACH PO DAILY (Reported) Nadolol (Nadolol) 80 Mg Tablet 80 MG PO DAILY (Reported) Pantoprazole DR (Pantoprazole DR) 40 Mg Tablet.dr 40 MG PO BID Prescribed by: SORIN SULLIVAN MD Spironolactone (Spironolactone) 50 Mg Tablet 50 MG PO DAILY (Reported) Sucralfate (Carafate) 1 Gm Tablet 1,000 MG PO QID Prescribed by: SORIN SULLIVAN MD As needed Hydrocodone-Acetaminophen 5-325 mg (Hydrocodone-Acetaminophen 5-325 mg) 1 Each Tablet 1 EACH PO Q6 PRN PRN For Pain (Reported) Loperamide (Loperamide) 2 Mg Capsule 2-4 MG PO BID PRN PRN For Diarrhea or Loose Stool (Reported) Followup Plan Disposition: Home Discharge Diet: Other (Mechanical soft. ) Discharge Activity: No restrictions Patient Instructions Dr Gonzáles within 2 weeks Follow-up with PCP in: 1 week Time spent 40 minutes Sorin Sullivan MD Oct 27, 2016 07:20
--- NOTE | 2016-10-29 10:47 | PATH ---
SURGICAL PATHOLOGY Attending Physician:Jelani Miller MD CASE STATUS: Signed Out PATIENT NAME: HAIDER BRITT PID: [id number] : 09/25/1951 DATE COLLECTED:10/25/2016 00:00 SPECIMEN: 1: Stomach, Antrum, Biopsy 2: Gastric, Biopsy CLINICAL HISTORY: A: ANTRUM BIOPSY B: GASTRIC BODY BIOPSY FINAL DIAGNOSIS: 1.GASTRIC ANTRUM, BIOPSY: GASTRIC ANTRUM WITH MILD CHRONIC GASTRITIS. Negative for Helicobacter organisms. Negative for intestinal metaplasia. No evidence of dysplasia or malignancy. 2.GASTRIC BODY BIOPSY: GASTRIC CORPUS WITH MILD CHRONIC GASTRITIS. Negative for Helicobacter organisms. Negative for intestinal metaplasia. No evidence of dysplasia or malignancy. ICD10 code K29.70 GROSS DESCRIPTION: The specimen is received in two formalin filled containers labeled with the patient's name. 1). The specimen is sublabeled "antrum" and consists of 3 portions of tissue which aggregate to 0.3 x 0.3 x 0.2 CM. The specimen is entirely submitted in cassette 1A. 2). The specimen is sublabeled "gastric body" and consists of 2 portions of tissue which aggregate to 0.3 x 0.3 x 0.2 CM. The specimen is entirely submitted in cassette 2A. 10/28/2016 [facility] MICRO DESCRIPTION: See diagnosis. ICD-9 CODES: CPT CODES: 1: 81729 2: 08423 Electronically Signed Out Oscar Gomez MD [facility], [place] [address] Technical component performed at [facility], [address] [place] [address] Ave[address], [place], [address]
== END 2016-10-26 18:21 | disposition home or self-care (01) | DRG 378 ==
LOC: SED 14:17 → OSC 16:35 → OBSVTOIN 16:35 → INTOOBSV 16:35 → PCC 17:39
PROVIDERS: ADMIT Hospitalist; ATTEND Hospitalist
PROC: 0DB48ZX Excision of Esophagogastric Junction, Via Natural or Artificial Opening Endoscopic, Diagnostic (ICD-10-PCS; 2016-10-25)
PROC: 0DB68ZX Excision of Stomach, Via Natural or Artificial Opening Endoscopic, Diagnostic (ICD-10-PCS; principal; 2016-10-25 09:30)
PROC: 0DJD8ZZ Inspection of Lower Intestinal Tract, Via Natural or Artificial Opening Endoscopic (ICD-10-PCS; 2016-10-26)
DX: K92.2 Gastrointestinal hemorrhage, unspecified (principal); K22.10 Ulcer of esophagus without bleeding; I85.00 Esophageal varices without bleeding; I12.9 Hypertensive chronic kidney disease with stage 1 through stage 4 chronic kidney disease, or unspecified chronic kidney disease; N18.3 Chronic kidney disease, stage 3 (moderate); I25.10 Atherosclerotic heart disease of native coronary artery without angina pectoris; K64.8 Other hemorrhoids; K57.90 Diverticulosis of intestine, part unspecified, without perforation or abscess without bleeding; K74.60 Unspecified cirrhosis of liver; D64.9 Anemia, unspecified; Z88.0 Allergy status to penicillin; I25.2 Old myocardial infarction; Z76.82 Awaiting organ transplant status

== ENCOUNTER 2016-10-30 18:14 | Inpatient (IN) | payer MEDICARE ==
[~2016-10-30] VITALS: Ht 172.7 cm; Wt 115.4 kg
[2016-10-30] VITALS (9 sets, daily range): BP systolic 109–173; BP diastolic 52–156; PULSE 68–80; RESP 17–24; O2SAT 96–100
[~2016-10-30 18:14] MED LIST changes: +PANT40TA3 PO; +SUCR1TAB30 PO
--- NOTE | 2016-10-30 18:15 | ED.REPORT ---
HPI-Altered Mental Status Date of Service Oct 30, 2016 ED Provider: Reji Lomas MD The patient is a 66 year old male with history of idiopathic liver cirrhosis, chronic kidney disease, coronary artery disease, hypertension, and recent GI bleed due to esophageal varices who reports to the ER after he was found down by his neighbor with decreased level of consciousness just prior to arrival. Via pt's daughter, pt was normal yesterday and ambulatory, with time down unknown. EMS noted that the patient had a distended abdomen but had normal vital signs. Patient was recently discharged from [facility] from October 27 following admission for grade 2 esophageal varices with ulcer and upper GI bleed, with endoscopy and colonoscopy not showing any active bleeding. Patient is on the liver transplant list. Nursing Notes Stated Complaint: DECREASED LOC Chief Complaint: General Complaint Nursing Notes Reviewed: Yes ([employer] not reconciled) Allergies: Coded Allergies: Penicillins (Verified Allergy, Intermediate, Rash; hives, 06/07/14) lisinopril (Verified Adverse Reaction, Mild, Cough, 06/07/14) losartan (Verified Adverse Reaction, Mild, Muscle aches, 06/07/14) Scheduled Cholecalciferol (Vitamin D3) (Vitamin D3) 2,000 Unit Capsule 6,000 UNIT PO DAILY Furosemide (Furosemide) 20 Mg Tab 40 MG PO DAILY Multivitamin (Multivitamins) 1 Each Capsule 1 EACH PO DAILY Nadolol (Nadolol) 80 Mg Tablet 80 MG PO DAILY Pantoprazole DR (Pantoprazole DR) 40 Mg Tablet.dr 40 MG PO BID Spironolactone (Spironolactone) 50 Mg Tablet 50 MG PO DAILY Sucralfate (Carafate) 1 Gm Tablet 1,000 MG PO QID Scheduled PRN Hydrocodone-Acetaminophen 5-325 mg (Hydrocodone-Acetaminophen 5-325 mg) 1 Each Tablet 1 EACH PO Q6 PRN PRN For Pain Loperamide (Loperamide) 2 Mg Capsule 2-4 MG PO BID PRN PRN For Diarrhea or Loose Stool General Time Seen by MD: 18:10 Chief Complaint Unresponsive Hx Obtained From: Other family... (daughter) Arrived By: Ambulance Sudden in Onset?: Yes Onset Occurred: Just prior to arrival Symptom Duration: Since onset Past Medical History Past Medical History Notes: Patient discharge October 27 following admission for grade 2 esophageal varices with ulcer and upper GI bleed-patient underwent upper endoscopy October 25 and a colonoscopy Past Medical History idiopathic liver cirrhosis, with Grade 2 esophageal varices with prior esophageal ulcer and erosive esophagitis. History of ascities. Coronary artery disease Hypertension Chronic kidney disaese History of upper GI bleed, presumed to be variceal bleed history of anemia Reports: Coronary artery disease Past Surgical History Colonoscopy Family History Noncontributory Smoking History Never Smoker Social History Alcohol Use: Denies alcohol use Other Social History: Good social support, Local resident Ambulatory Status Independent Review of Systems Unable to Obtain ROS Patient condition Physical Exam Initial Vital Signs Vital Signs (First) Date Time Temp Pulse Resp B/P Pulse Ox O2 Delivery O2 Flow Rate FiO2 10/30/16 18:14 36.4 74 24 173/156 100 Nasal Cannula 2 Initial VS: Reviewed Alertness: Positive: Responds to pain stimuli, Unresponsive, Negative: Responds to verb stimuli Appearance / Presentation: Positive: Obese, Pale Head / Eyes: Atraumatic, Normocephalic Neck: Supple, No JVD Respiratory / Chest: Breath sounds NL, Breath sounds = bilat, No respiratory distress, No rales, No rhonchi, No wheezing Cardiovascular: Heart rate NL, Regular rhythm Mental Status: Positive: Responds to painful stim, Unresponsive (to voice) eyes closed thrashes around and struggles symmetrically to irritants moves all extremities in response to stimuli of pain Abdomen: Soft probable ascities but not tense large scar RUQ Skin: Warm, Dry Color / Condition: Positive: Jaundice present no appreciate areas of cellulitis Upper Extremity / MS: No deformity, Neurologic intact Lower Extremity / Pelvis / MS: No deformity, Neurologic intact large bulla of lower extremities 2 to 3 pitting edema of extremities bilateral lower extremities Interpretation & Diagnostics Lab Results Interpretation Result Diagram: 10/30/16 1810 10/30/16 1825 Test 10/30/16 18:10 10/30/16 18:25 10/30/16 21:36 White Blood Count 13.2th/mm3 (3.8-10.1) Red Blood Count 3.44mil/mm3 (4.40-5.80) Hemoglobin 12.0g/dL (13.8-17.2) Hematocrit 34.7% (41.0-50.0) Mean Corpuscular Volume 101fL (81-100) Mean Corpuscular Hemoglobin 34.9pg (27.0-35.0) Mean Corpuscular Hemoglobin Concent 34.6% (32.0-37.0) Red Cell Distribution Width 14.6% (12.3-15.4) Platelet Count 191bil/L (150-400) Neutrophils (%) (Auto) 83% (40-74) Lymphocytes (%) (Auto) 6% (14-46) Monocytes (%) (Auto) 11% (4-12) Eosinophils (%) (Auto) 0% (0-5) Basophils (%) (Auto) 0% (0-3) Hold Rm Top Tube Received (Received) Prothrombin Time 16.9sec (8.1-12.5) Prothromb Time International Ratio 1.57ratio Sodium Level 141mEq/L (134-144) Potassium Level 5.0mEq/L (3.5-5.2) Chloride Level 105mEq/L (97-108) Carbon Dioxide Level 19mmol/L (18-29) Blood Urea Nitrogen 47mg/dL (8-27) Creatinine 4.22mg/dL (0.76-1.27) Estimat Glomerular Filtration Rate 15mL/min (>59) Glucose Level 112mg/dL (60-99) Calcium Level 8.1mg/dL (8.5-10.1) Total Bilirubin 5.1mg/dL (0.0-1.2) Aspartate Amino Transf (AST/SGOT) 65U/L (0-50) Alanine Aminotransferase (ALT/SGPT) 32U/L (0-44) Alkaline Phosphatase 81U/L (25-160) Ammonia 401ug/dL (18-53) Total Creatine Kinase 998U/L (21-232) Total Protein 7.8g/dL (6.4-8.4) Albumin 2.0g/dL (3.4-5.0) Alcohol, Quantitative < 10mg/dL (0-10) Urine Color Yellow (YELLOW) Urine Appearance Clear (CLEAR,HAZY) Urine pH 6.0 (5.0-8.0) Urine Specific Novi 1.020 (1.003-1.035) Urine Protein Negativemg/dL (NEG,TRACE) Urine Glucose (UA) Negativemg/dL (NEGATIVE) Urine Ketones Negativemg/dL (NEGATIVE) Urine Occult Blood Moderate (NEGATIVE) Urine Nitrite Negative (NEGATIVE) Urine Bilirubin Negative (NEGATIVE) Urine Urobilinogen Normalmg/dL (NORMAL) Urine Leukocyte Esterase Negative (NEGATIVE) Urine RBC 3-10/hpf (0-2) Urine WBC 0-5/hpf (0-5) Urine Epithelial Cells Occasional/hpf (NONE-MOD) Urine Crystals None seen (NONE SEEN) Urine Bacteria None/hpf (NONE-FEW) Urine Hyaline Casts None/lpf (NONE) Urine Granular Casts None seen (NONE SEEN) Urine Waxy Casts None seen (NONE SEEN) Urine Red Blood Cell Casts None seen (NONE SEEN) Urine White Blood Cell Casts None seen (NONE SEEN) Urine Mucus None seen (None Seen) Urine Trichomonas None seen (NONE SEEN) Urine Yeast None (NONE SEEN) Urinalysis Comment None Urine Culture Reflexed Not indicated Lab Results Interpretation: CBC mild leukocytosis, hematocrit stable CMP positive renal failure, acute on chronic patient's creatinine was in the 2+ range on recent admission INR elevated from chronic liver disease Ammonia extremely elevated ECG Interpretation ECG Interpretation: sinus rate 60 poor baseline t waves abnormalities have resolved from a few days ago flat t waves and one avl that are more pronounced then they were on Oct 24 previous ekg was atrial paced Time: 21:00 Interpreted by: ED physician Normal ECG Interpretation: No acute ischemic changes X-Ray Chest Interpretation Chest Xray Interpretation: IMPRESSION: No acute cardiopulmonary disease process. Dictated by: Daysi Moreno MD, PhD on 10/30/2016 at 19:01 Approved by: Daysi Moreno MD, PhD on 10/30/2016 at 19:01 View: Portable Interpretation / Wet Read by: Interpret - Radiologist X-Ray Abdominal Interpretation IMPRESSION: Tip of Dobbhoff projecting over the first portion of the duodenum Dictated by: Daysi Moreno MD, PhD on 10/30/2016 at 19:52 Approved by: Daysi Moreno MD, PhD on 10/30/2016 at 19:52 IMPRESSION: NG tube projects across the GE junction to the proximal stomach. Dobbhoff feeding tube is been removed. Dictated by: Daysi Moreno MD, PhD on 10/30/2016 at 20:55 Approved by: Daysi Moreno MD, PhD on 10/30/2016 at 20:55 Study: 2 view Interpretation / Wet Read by: Interpret - Radiologist CT Head Interpretation IMPRESSION: 1. No acute intracranial disease process. 2. Bilateral external auditory canal soft tissue density lesions. Recommend direct visualization to differentiate earwax from malignancy. Dictated by: Daysi Moreno MD, PhD on 10/30/2016 at 19:52 Approved by: Daysi Moreno MD, PhD on 10/30/2016 at 19:52 Study: Head CT no contrast Interpretation / Wet Read by: Interpret - Radiologist Procedures NG Tube Insertion Time: 19:16 Procedure Performed by: ED physician Site of Insertion: Nare right # of Attempts: 2 Size of Oral/NG Tube: 14 Fr (originally 12 Fr placed, fluid would not flow through, 14 Fr placed instead) Placement/Verification/Secured: Inserted w/o difficulty, Secured with tape, Verified by x-ray Post-Procedure / Complications: No complications, Tolerated procedure well, Patient stable Re-Eval/Medical Decision Med Decision/Clinical Course This is a 66-year-old male with idiopathic liver disease he was approximately transplant list who was just discharged from the hospital following an upper GI bleed in recent days. He had undergone endoscopy and colonoscopy as his evaluation. His neighbor found him with decreased responsive on the floor. Family indicated they last saw him known to be normal yesterday. Patient appears encephalopathic-is no visible signs of trauma to the head, but does not follow commands, is drowsy, but responds to every stimulus and to be agitated at times. There is no focality or focal weakness. Patient's developed large bulla and skin breakdown on both of the lower extremities presently pressure findings in a patient with chronic anasarca. Laboratory work confirms findings consistent with hepatic encephalopathy. Present with the patient the recent GI bleed, this medication list does not include lactulose, is at high risk for developement. Patient is too altered to be able to take by mouth. A noncontrast head CT was obtained and was negative. I placed a Dobbhoff feeding tube initially for comfort versus but was unable to get lactulose to deliver smoothly, so this was replaced with a standard 14 Arabic NG tube through which lactulose could be administered. Labs also demonstrate worsening renal insufficiency. No findings of additional leak active bleeding. The patient's hematocrit and hemodynamics have remained stable. Patient requires admission to the unit for continued management. Source of Hx: Old records, Family Re-Evaluation/Progress #1: Time of Eval: 19:00 Re-Evaluation/Progress Note: Rechecked the patient, who is now accompanied by his daughter. Able to get more history, including that the patient is not on Laculcose. Discussed plan for readmission to the hospital. All questions addressed. Re-Evaluation/Progress #2: Time of Eval: 19:15 Re-Evaluation/Progress Note: NG tube placed. Consultation : Referral / Consult Name: Joshua Wagner MD Consulted With: Hospitalist Call Returned at: 21:05 Management Lecturer: Will see patient, Agrees with eval, Agrees with plan, Accepts admit Note: Spoke with Dr. Wagner, hospitalist, who agrees to accept admit. Counseled Regarding: Diagnosis, Lab results, Need for admission Patient Discharge & Departure Impression: Primary Impression: Hepatic encephalopathy Additional Impressions: Liver failure Liver failure chronicity: chronic Hepatic coma status: with hepatic coma Qualified Code: K72.11 - Chronic hepatic failure with coma Renal failure Skin breakdown Disposition: ADMITTED TO HOSPITAL Discharge Condition All VS Reviewed: Yes Condition: Stable Referrals: Artem Campo MD (PCP) Crit Care Except Billable Proc Time Spent: 30-74 minutes Services Performed: Patient management by me, Time spent at bedside, Reviewing test results, Reviewing imaging, Discussing patient care, Documentation in record, Time with fam/surrogate Scribe Attestation Portions of this note were transcribed by Silvia Ragland and Aaliyah Cox. I, Dr. Lomas personally performed the history, physical exam and medical decision- making; I reviewed and confirmed the accuracy of the information in the transcribed note. Signed by: Jj Kay, 10/30/20162219 Signed by: Jj Silva, 10/30/20166 copies to: Artem Campo MD, Matthew F MD Oct 30, 2016 18:15 AALIYAH COX Oct 30, 2016 18:22 Silvia Ragland Oct 30, 2016 20:39
[2016-10-30 18:32] LABS: BASOPHILS % (AUTO) 0 % (0-3); EOSINOPHILS % (AUTO) 0 % (0-5); MONOCYTES % (AUTO) 11 % (4-12); Mean Corpuscular Hemoglobin 34.9 pg (27.0-35.0); Mean Corpuscular Volume 101 fL (81-100); NEUTROPHILS % (AUTO) 83 % (40-74); Platelet Count 191 bil/L (150-400)
[2016-10-30 18:51] LABS: INR 1.57 ratio
[2016-10-30 18:59] LABS: Ammonia 401 ug/dL (18-53)
--- NOTE | 2016-10-30 19:03 | DRSVH ---
PROCEDURE: X-RAY CHEST ONE VIEW, PORTABLE ([id number]) INDICATIONS: Altered LOC TECHNIQUE: One view of the chest was acquired. COMPARISON: None. FINDINGS: Surgical changes and devices: Cholecystectomy clips. Lungs and pleura: No pleural effusions or pneumothorax. Lungs are clear. Mediastinum: Mediastinal contours appear normal. Heart size is normal. Bones and chest wall: No suspicious bony lesions. Overlying soft tissues appear unremarkable. IMPRESSION: No acute cardiopulmonary disease process. Dictated by: Daysi Moreno MD, PhD on 10/30/2016 at 19:01 Approved by: Daysi Moreno MD, PhD on 10/30/2016 at 19:01
[2016-10-30] MEDS ORDERED: Lactulose 20 Gm/30 mL 30 mL Syrup TUBE ONE (19:15)
[2016-10-30] MEDS ORDERED: TdaP Vaccine 0.5 mL Inj IM ONE (19:25)
--- NOTE | 2016-10-30 19:54 | DRSVH ---
PROCEDURE: CT BRAIN WITHOUT CONTRAST ([id number]) INDICATIONS: Altered LOC TECHNIQUE: Noncontrast 4.5 mm thick angled axial sections acquired from the foramen magnum to the vertex, with c oronal reformats. COMPARISON: None. FINDINGS: Image quality: Excellent. CSF spaces: Basal cisterns are patent. No extra-axial fluid collections. Ventricles are normal in size and shape. Brain: No midline shift. No intracranial masses or hemorrhage. Thompson-white matter interface is norm al. Skull and face: Calvarium and visualized facial bones are intact, without suspicious lesions. Of tis joanne density lesions noted in the external auditory canals bilaterally which could represent ear wax o r neoplastic process. Recommend correlation with direct visualization. Sinuses: Visualized sinuses and mastoids are clear. IMPRESSION: 1. No acute intracranial disease process. 2. Bilateral external auditory canal soft tissue density lesions. Recommend direct visualization to differentiate earwax from malignancy. Dictated by: Daysi Moreno MD, PhD on 10/30/2016 at 19:52 Approved by: Daysi Moreno MD, PhD on 10/30/2016 at 19:52
--- NOTE | 2016-10-30 19:54 | DRSVH ---
PROCEDURE: X-RAY ABDOMEN, ONE VIEW ([id number]) INDICATIONS: 10/27 CXR 10/27 ABd - check Dobhoff Feeding tube place TECHNIQUE: One view of the abdomen acquired. COMPARISON: None. FINDINGS: Surgical changes and devices: Tip of Dobbhoff feeding tube projects over the first portion of the du odenum. Cholecystectomy clips Bowel: Bowel gas pattern is normal. Soft tissues: No suspicious abdominal calcifications. Visualized solid organ contours appear normal in size. Bones: No suspicious bony lesions. IMPRESSION: Tip of Dobbhoff projecting over the first portion of the duodenum Dictated by: Daysi Moreno MD, PhD on 10/30/2016 at 19:52 Approved by: Daysi Moreno MD, PhD on 10/30/2016 at 19:52
--- NOTE | 2016-10-30 20:57 | DRSVH ---
PROCEDURE: X-RAY ABDOMEN, ONE VIEW ([id number]) INDICATIONS: Check NG tube (tube pulled, replaced) TECHNIQUE: One view of the abdomen acquired. COMPARISON: [facility], CR, XR ABD AP 1VW, 10/30/2016, 19:18. FINDINGS: Surgical changes and devices: Cholecystectomy clips. NG tube projects across the GE junction into t he proximal stomach. Bowel: Bowel gas pattern is normal. Soft tissues: No suspicious abdominal calcifications. Visualized solid organ contours appear normal in size. Bones: No suspicious bony lesions. IMPRESSION: NG tube projects across the GE junction to the proximal stomach. Dobbhoff feeding tube is been removed. Dictated by: Daysi Moreno MD, PhD on 10/30/2016 at 20:55 Approved by: Daysi Moreno MD, PhD on 10/30/2016 at 20:55
[2016-10-30] MEDS ORDERED: Ondansetron 2 mg/mL 2 mL Inj IVPUSH PRN (21:55)
[2016-10-30] MEDS ORDERED: Alum-Mag Hydrox-Simeth 30 mL Suspension PO PRN (21:55)
[2016-10-30 22:01] LABS: APPEARANCE,URINE CLEAR (CLEAR,HAZY); COLOR,URINE YELLOW (YELLOW)
[2016-10-30 22:02] LABS: OCCULT BLOOD,URINE MODERATE (NEGATIVE); UROBILINOGEN,URINE NORMAL (NORMAL)
--- NOTE | 2016-10-31 00:15 | NUR ---
Arrive 2300 accompanied by daughter. Pt w/ decrease LOC. Moans. Very rigid and strong when care given. R eye minimally open. No eye contact for following cues. Restraints to protect R NGT and marie intact. L EJ and L UA IVs. Tele SR. BP stable. RA sats in the high 90s. Multiple large blisters from waist down to feet. Daughter left for home after pt arrival to floor. She states will bring adv directive in tomorrow.
[2016-10-31 00:30] VITALS: BP 110/55; PULSE 63; RESP 14; O2SAT 99
[2016-10-31] MEDS ORDERED: Lactulose 20 Gm/30 mL 30 mL Syrup TUBE ONE ×2 (00:50→03:40)
[2016-10-31] MEDS ORDERED: Alum-Mag Hydrox-Simeth 30 mL Suspension PO PRN (00:50)
[2016-10-31] MEDS ORDERED: Polyethylene Glycol (PEG) 17 Gm Powder PO PRN (00:50)
[2016-10-31] MEDS ORDERED: Ondansetron 2 mg/mL 2 mL Inj IVPUSH PRN (00:50)
[2016-10-31] MEDS: 0.9% Sodium Chloride 1,000 ML IV SCH ×4 (01:32→22:41)
--- NOTE | 2016-10-31 01:53 | PCM.HPMED ---
Subjective Date of Service Oct 31, 2016 Primary Provider: Admitting Physician: Joshua Wagner MD Primary Care Physician: Artem Campo MD Attending Physician: Joshua Wagner MD Chief Complaint: Altered mental status History of Present Illness: Patient is a 66-year-old male with MADISON cirrhosis, chronic kidney disease, CAD, hypertension and recent GI bleed secondary to esophageal varices presenting with altered mental status. Much of the history is obtained from review of medical records as the patient is minimally responsive and no family is available at bedside. The patient was reportedly found by his neighbor with decreased level of consciousness. According to reports in the ED, the patient's daughter states that the patient was in usual state of health yesterday. The patient was recently discharged from [facility] on 10/27/2015 for GI bleed. EGD and colonoscopy were performed during that hospitalization, which identified grade 2 esophageal varices without recent stigmata of bleed, distal erosive esophagitis, mild portal hypertensive gastropathy, mild nonerosive gastritis and nonbleeding sigmoid diverticulosis. In the ED, vitals: 36.6, HR 76, RR 24 satting 100% on 2L nasal cannula, BP 124/ 98. Notable labs: WBC 13.2, BUN 47, creatinine 4.22. T bili 5.1, AST 65, ALT 32 , alk phos 81. Ammonia 401. Total CK 998. NG tube was placed in the ED and patient received 60g lactulose. Review of Systems: Unable to obtain due to patient's mental status Allergies Coded Allergies: Penicillins (Verified Allergy, Intermediate, Rash; hives, 06/07/14) lisinopril (Verified Adverse Reaction, Mild, Cough, 06/07/14) losartan (Verified Adverse Reaction, Mild, Muscle aches, 06/07/14) Home Medications Medication list per recent discharge on 10/27/2016. Requires verification. Vitamin D3 6,000u PO daily Furosemide 40mg PO daily Multivitamin 1 capsule PO daily Nadolol 80mg PO daily Pantoprazole 40mg PO daily Spironolactone 50mg PO daily Sucralfate 1,000mg PO QID Hydrocodone-Acetaminophen 5-325mg PO Q6 PRN Loperamide 2-4mg PO BID PRN PMH Cirrhosis secondary to MADISON with varices Chronic kidney disease stage III CAD Hypertension . Surgical History Colonoscopy Family History Adopted, not available Social History Hx Alcohol Use: No Alcoholic Drinks Per Day: very rare over the years per dtr Hx Substance Use: No Hx Tobacco Use: No Smoking Status: Never Smoker Exam Vital Signs Vital Sign - Last Date Time Temp Pulse Resp B/P Pulse Ox O2 Delivery O2 Flow Rate FiO2 10/31/16 00:30 36.4 63 14 110/55 99 Room Air 10/30/16 23:05 2 Intake and Output 10/30/16 10/30/16 10/31/16 Cumulative From/Thru 15:00 23:00 07:00 10/30/16 18:14 - 10/31/16 00:51 Output Total 250 ml 250 ml Balance -250 ml -250 ml Output Urine Total 250 ml 250 ml # Bowel Movements 1 1 Exam General: Well-developed, well-nourished. Decreased level of consciousness, not interactive. Movement with painful stimuli HEENT: Normocephalic, atraumatic. External ears without defect. Scleral icterus Neck: Supple. No lymphadenopathy or thyromegaly Cardiovascular: Regular rate and rhythm with no murmurs, rubs, or gallops appreciated Pulmonary: Clear to auscultation bilaterally with no crackles, wheezes, or rhonchi Abdomen: Bowel tones present. Marked abdominal distention Genitourinary: Moses in place Extremities: No clubbing, cyanosis, edema, or lymphadenopathy appreciated Skin: Multiple bullae on lower extremities bilaterally and abdomen. Ruptured bullae on lower extremities bilaterally with some drainage. Bilateral lower extremity pitting edema to the ankles. Jaundice. Neurological: Unable to assess due to patient's mental status Lab and Diagnostics Result Diagram: 10/30/16180910/30/161824 X-Rays, CTs and MRIs Date of Service: 10/30/161809 PROCEDURE: X-RAY CHEST ONE VIEW, PORTABLE ([id number]) INDICATIONS: Altered LOC TECHNIQUE: One view of the chest was acquired. COMPARISON: None. FINDINGS: Surgical changes and devices: Cholecystectomy clips. Lungs and pleura: No pleural effusions or pneumothorax. Lungs are clear. Mediastinum: Mediastinal contours appear normal. Heart size is normal. Bones and chest wall: No suspicious bony lesions. Overlying soft tissues appear unremarkable. IMPRESSION: No acute cardiopulmonary disease process. Dictated by: Daysi Moreno MD, PhD on 10/30/2016 at 19:01 Approved by: Daysi Moreno MD, PhD on 10/30/2016 at 19:01 Date of Service: 10/30/16 1810 PROCEDURE: CT BRAIN WITHOUT CONTRAST ([id number]) INDICATIONS: Altered LOC TECHNIQUE: Noncontrast 4.5 mm thick angled axial sections acquired from the foramen magnum to the vertex, with coronal reformats. COMPARISON: None. FINDINGS: Image quality: Excellent. CSF spaces: Basal cisterns are patent. No extra-axial fluid collections. Ventricles are normal in size and shape. Brain: No midline shift. No intracranial masses or hemorrhage. Thompson-white matter interface is normal. Skull and face: Calvarium and visualized facial bones are intact, without suspicious lesions. Of tissue density lesions noted in the external auditory canals bilaterally which could represent ear wax or neoplastic process. Recommend correlation with direct visualization. Sinuses: Visualized sinuses and mastoids are clear. IMPRESSION: 1. No acute intracranial disease process. 2. Bilateral external auditory canal soft tissue density lesions. Recommend direct visualization to differentiate earwax from malignancy. Dictated by: Daysi Moreno MD, PhD on 10/30/2016 at 19:52 Approved by: Daysi Moreno MD, PhD on 10/30/2016 at 19:52 Date of Service: 10/30/162033 PROCEDURE: X-RAY ABDOMEN, ONE VIEW ([id number]) INDICATIONS: Check NG tube (tube pulled, replaced) TECHNIQUE: One view of the abdomen acquired. COMPARISON: [facility], CR, XR ABD AP 1VW, 10/30/2016, 19:18. FINDINGS: Surgical changes and devices: Cholecystectomy clips. NG tube projects across the GE junction into the proximal stomach. Bowel: Bowel gas pattern is normal. Soft tissues: No suspicious abdominal calcifications. Visualized solid organ contours appear normal in size. Bones: No suspicious bony lesions. IMPRESSION: NG tube projects across the GE junction to the proximal stomach. Dobbhoff feeding tube is been removed. Dictated by: Daysi Moreno MD, PhD on 10/30/2016 at 20:55 Approved by: Daysi Moreno MD, PhD on 10/30/2016 at 20:55 Assessment & Plan Patient is a 66-year-old male with MADISON cirrhosis, chronic kidney disease, CAD, hypertension and recent GI bleed secondary to esophageal varices admitted for hepatic encephalopathy. 1. Acute hepatic encephalopathy. Present on admission. Active -CT brain without acute intracranial disease process -Uncertain precipitant - possibly secondary to renal failure, infection, constipation, medication -Alcohol level <10 -Pending studies: urine toxicology screen; procalcitonin, TSH -Ammonia level 401 -Lactulose 60g in ED. Continue with lactulose until bowel movement then titrate to 2-3 BM daily 2. Acute on chronic kidney disease, stage 3. Present on admission. Active -Creatinine 4.22 on admit -Likely due to decreased oral intake from decreased level of consciousness -Avoid nephrotoxins -IV fluids with NS -Follow with CMP 3. MADISON cirrhosis with varices, chronic. Present on admission -Hold spironolactone and Lasix until patient is stable -Nadolol 4. Ascites. Present on admission -Consider paracentesis to r/o SBP 5. Coronary artery disease, chronic. Present on admission -Presumed stable 6. Hypertension, chronic. Present on admission -Follow clinically Patient Status: Patient is admitted under inpatient status with expected length of stay greater than 2 midnights due to severity of presenting symptoms, risk of adverse event, and complexity of treatment plan. VTE Prophylaxis: Sub-Q Heparin (Unfractionated) Resuscitation Status: CPR: Attempt Resuscitation Attending Statement Pt seen and examined independently, Plan and treatment discussed with resident. Agree with the above plan and assesment. Sina Shetty DO Oct 31, 2016 01:45 Joshua Wagner MD Oct 31, 2016 06:42
[2016-10-31 04:30] VITALS: BP 110/65; PULSE 72; RESP 27; O2SAT 100
--- NOTE | 2016-10-31 05:43 | NUR ---
P: decrease LOC I: lactulose E: Small BM on arrival from ER but no further BM following 2 doses of lactulose given on floor via NGT. Barely opens eyes, more R eye than L. Grunts, groans, and body rigid when care given. Amanda strongly. Pulling on restraints reaching for marie and NGT. IVF increase to 150ml/hr per MD request. Inform MD of minimal UOP. Tele SR. Generally stable BP. Afebrile. RA sats in the high 90s. Sleeping...
[2016-10-31 05:47] LABS: BASOPHILS % (AUTO) 0.1 % (0-3); EOSINOPHILS % (AUTO) 0.1 % (0-5); Mean Corpuscular Hemoglobin 34.8 pg (27.0-35.0); Mean Corpuscular Volume 103.4 fL (81-100); NEUTROPHILS % (AUTO) 81.7 % (40-74); Platelet Count 90 bil/L (150-400)
--- NOTE | 2016-10-31 07:37 | PCM.PNMED ---
Subjective Date of Service Oct 31, 2016 Subjective Patient is minimally arousable and opens eyes. He is encephalopathic. No subjective in ROS is obtainable. Exam Vital Signs Vital Sign - Last Date Time Temp Pulse Resp B/P Pulse Ox O2 Delivery O2 Flow Rate FiO2 10/31/16 04:30 36.9 72 27 110/65 100 Room Air 10/30/16 23:05 2 Intake and Output 10/30/16 10/30/16 10/31/16 Cumulative From/Thru 15:00 23:00 07:00 10/30/16 18:14 - 10/31/16 05:42 Intake Total 519 ml 519 ml Output Total 250 ml 40 ml 290 ml Balance -250 ml 479 ml 229 ml Intake IV Total 399 ml 399 ml Tube Irrigant 120 ml 120 ml Output Urine Total 250 ml 40 ml 290 ml # Bowel Movements 1 1 Exam Minimally arousable. No distress. Icteric sclera Normal skull Lungs clear normal effort Heart is regular without murmur. Abdomen is distended, ascites. Extremities with gross anasarca and multiple large water blisters. Some up to 10 cm in diameter. Most of the severity opened up others have not. GERD ecchymosis. IVs and Medications Medications Reviewed: Medications were reviewed in detail Lab and Diagnostics Result Diagram: 10/31/1642910/31/16 043 X-Rays, CTs and MRIs Date of Service: 10/30/161809 PROCEDURE: X-RAY CHEST ONE VIEW, PORTABLE ([id number]) INDICATIONS: Altered LOC TECHNIQUE: One view of the chest was acquired. COMPARISON: None. FINDINGS: Surgical changes and devices: Cholecystectomy clips. Lungs and pleura: No pleural effusions or pneumothorax. Lungs are clear. Mediastinum: Mediastinal contours appear normal. Heart size is normal. Bones and chest wall: No suspicious bony lesions. Overlying soft tissues appear unremarkable. IMPRESSION: No acute cardiopulmonary disease process. Dictated by: Daysi Moreno MD, PhD on 10/30/2016 at 19:01 Approved by: Daysi Moreno MD, PhD on 10/30/2016 at 19:01 Date of Service: 10/30/161809 PROCEDURE: CT BRAIN WITHOUT CONTRAST ([id number]) INDICATIONS: Altered LOC TECHNIQUE: Noncontrast 4.5 mm thick angled axial sections acquired from the foramen magnum to the vertex, with coronal reformats. COMPARISON: None. FINDINGS: Image quality: Excellent. CSF spaces: Basal cisterns are patent. No extra-axial fluid collections. Ventricles are normal in size and shape. Brain: No midline shift. No intracranial masses or hemorrhage. Thompson-white matter interface is normal. Skull and face: Calvarium and visualized facial bones are intact, without suspicious lesions. Of tissue density lesions noted in the external auditory canals bilaterally which could represent ear wax or neoplastic process. Recommend correlation with direct visualization. Sinuses: Visualized sinuses and mastoids are clear. IMPRESSION: 1. No acute intracranial disease process. 2. Bilateral external auditory canal soft tissue density lesions. Recommend direct visualization to differentiate earwax from malignancy. Dictated by: Daysi Moreno MD, PhD on 10/30/2016 at 19:52 Approved by: Daysi Moreno MD, PhD on 10/30/2016 at 19:52 Date of Service: 10/30/162033 PROCEDURE: X-RAY ABDOMEN, ONE VIEW ([id number]) INDICATIONS: Check NG tube (tube pulled, replaced) TECHNIQUE: One view of the abdomen acquired. COMPARISON: Located [facility], CR, XR ABD AP 1VW, 10/30/2016, 19:18. FINDINGS: Surgical changes and devices: Cholecystectomy clips. NG tube projects across the GE junction into the proximal stomach. Bowel: Bowel gas pattern is normal. Soft tissues: No suspicious abdominal calcifications. Visualized solid organ contours appear normal in size. Bones: No suspicious bony lesions. IMPRESSION: NG tube projects across the GE junction to the proximal stomach. Dobbhoff feeding tube is been removed. Dictated by: Daysi Moreno MD, PhD on 10/30/2016 at 20:55 Approved by: Daysi Moreno MD, PhD on 10/30/2016 at 20:55 Assessment & Plan Patient is a 66-year-old male with MADISON cirrhosis, chronic kidney disease, CAD, hypertension and recent GI bleed secondary to esophageal varices admitted for hepatic encephalopathy. 1. Acute hepatic encephalopathy. Present on admission. Active This is a new manifestation for him in context of chronic liver disease. He had a minor GI bleed last week not requiring blood products. He has never been on lactulose. At this point we will continue treatment with lactulose via NG tube. Will also rule out spontaneous bacterial peritonitis given ascites and recent minor GI bleed with his altered mental status. We will order paracentesis for diagnostic purposes today. 2. Acute on chronic kidney disease, stage 3. Present on admission. Active -Creatinine 4.22 on admit -Likely due to decreased oral intake from decreased level of consciousness -Avoid nephrotoxins -IV fluids with NS -Follow with CMP The patient does have gross anasarca with skin breakdown issues. I am going to give him Lasix IV 1 and TKO the saline to see if he can diurese while maintaining a stable to improved creatinine. 3. MADISON cirrhosis with varices, chronic. Present on admission -Hold spironolactone and Lasix until patient is stable -Nadolol 4. Ascites. Present on admission -Paracentesis today. 5. Coronary artery disease, chronic. Present on admission -Presumed stable 6. Hypertension, chronic. Present on admission -Follow clinically Patient Status: Patient is admitted under inpatient status with expected length of stay greater than 2 midnights due to severity of presenting symptoms, risk of adverse event, and complexity of treatment plan. 1400 addendum. The patient has had a progressive lactic acidosis and hypotension system with sepsis. Suspect spontaneous bacterial peritonitis. I started him on meropenem and started fluid resuscitation. We will trend his lactic acid as well. Have requested a PICC line to be placed for access as well as a diagnostic paracentesis. The alternative is that the patient may be extremely dry. Spoke at length with his daughter here as his proxy decision maker and the patient will be DO NOT INTUBATE but would be appropriate for other sepsis treatments including vasopressors. Also BiPAP. The patient was discharged on sucralfate and Protonix as developed large bulla of both legs. No history of bolus disease. No evidence of secondary skin infection there. We will also obtain blood cultures. Just x-ray was negative as was urinalysis. Pain Evaluation: Adequate Pain Control VTE Prophylaxis: Sub-Q Heparin (Unfractionated) Resuscitation Status: CPR: Attempt Resuscitation Time spent 60 minutes Jimmy Ramírez MD Oct 31, 2016 07:37
[2016-10-31] MEDS ORDERED: Furosemide 10 mg/mL 2 mL Inj IVPUSH ONE (07:40)
[2016-10-31] MEDS: Lactulose 20 Gm/30 mL 30 mL Syrup TUBE SCH ×3 (08:21→21:34)
[2016-10-31 08:30] VITALS: BP 116/62; PULSE 62; RESP 27; O2SAT 96
[2016-10-31] MEDS: Heparin 5,000 Unit/mL Inj SUBQ SCH ×2 (08:30→16:30)
[2016-10-31] MEDS ORDERED: CHOL400T PO (11:02)
--- NOTE | 2016-10-31 11:31 | NUR ---
NUTRITION ASSESSMENT: ASSESS:66 YO male admitted to CCU with newly diagnosed hepatic encephalopathy in the context of chronic liver disease. The patient is minimally arousable and opens eyes. He is currently being treated with lactulose via NG tube. Provider ruling out spontaneous bacterial peritonitis given ascites and recent minor GI bleed with his altered mental status. Paracentesis ordered for diagnostic purposes today. The patient has anasarca and there are large bullous lesions on his legs. Wound consult not yet ordered. PMHx:MADISON cirrhosis, HTN, recent GI bleed with esophageal varices identified, stage III renal disease, CAD. DIET:NPO. LABS: Reviewed. Na 145, Chloride 109, BUN 51, C4 4.51, Glu 124, Lactic Acid 7.2, Ca 8.1, Total Tili 5.5, AST 155, Alb 1.9. MEDICATIONS: Reviewed. Lactulose, lasix. NUTRITION FOCUSED PHYSICAL ASSESSMENT: GI symptoms / stool: BM x 1 today.Celestine: None recorded. Skin Integrity: Large bullous lesions on legs. ANTHROPOMETRICS: Current Wt: 118.4 kgBMI: 39.0 kg/m2. IBW: 70 kg (169% IBW) ESTIMATED NEEDS (CCU, LIVER DISEASE, WOUNDS, STAGE II OBESITY): Calories: 2100 - 2450 kcal (30 - 35 kcal / kg IBW) Protein: 84 - 105 g protein (1.2 - 1.5 g / kg IBW) NUTRITION DIAGNOSIS: 1)Inadequate oral intake related to hepatic encephalopathy, as evidenced by NPO status. 2)Increased nutrient needs related to chronic liver disease, wounds. INTERVENTION: 1) No intervention at this time. 2) Once diet advanced and wound eval. completed, will recommend supplementation. MONITOR/EVALUATE: Diet advance / tolerance, PO intake, labs, GI/nutrition status. Follow up per high nutrition risk guidelines.
[2016-10-31] MEDS ORDERED: 0.9% Sodium Chloride 1,000 ML IV ONE (11:40)
[2016-10-31] MEDS ORDERED: Sodium Chloride LOK Flush 10 mL Syringe IVFLUSH PRN ×2 (12:05)
[2016-10-31 12:30] VITALS: BP 77/40; PULSE 72; RESP 22; O2SAT 96
[2016-10-31] MEDS: Meropenem Inj 1,000 MG in IV Premix 1 EACH IV SCH ×2 (13:45→17:26)
--- NOTE | 2016-10-31 14:51 | NUR ---
BP Gave PRN 1L NS bolus for a BP=77/40. BP improved and ordered PRN boluses. PICC line ordered. Consent for PICC signed by and RN by daughter Carmen over the phone. Paracentesis ordered, held heparin. WC consulted pt. Removed skin from large bilater LE blisters. Placed xero foam and wrapped in kerlix. Gave Ativan IV PRN for agitation and restlessness with pain. Paracentesis planned for 1500. Placed 5L oxymask. Large loose BM, sent cdiff sample. Restraints in place. Moses draining minimal dark will urine, lasix given one time dose.
--- NOTE | 2016-10-31 15:47 | DRSVH ---
PROCEDURE: X-RAY PICC LINE PLACEMENT BY NURSE ([id number]) INDICATIONS: access COMPARISON: None. FINDINGS: PICC was placed by the intravenous therapy team from the left side. Fluoroscopic spot francisco javier m demonstrates tip of PICC in the distal SVC. IMPRESSION: Tip of PICC lies within the distal SVC. Dictated by: Daysi Moreno MD, PhD on 10/31/2016 at 15:45 Approved by: Daysi Moreno MD, PhD on 10/31/2016 at 15:45
--- NOTE | 2016-10-31 15:56 | NUR ---
Wound Care Wound evaluation order in place, pt seen at bedside. The patient is a 66 year old male with history of idiopathic liver cirrhosis, chronic kidney disease, coronary artery disease, hypertension, and recent GI bleed due to esophageal varices who reports to the ER after he was found down by his neighbor with decreased level of consciousness just prior to arrival. He currently presents in CCU bed, restraints in place, Moses cath and NG tube. Pt has impressive straw colored blisters at his lower extremities and abdomen ranging in size from 25 cms in diameter to 15 cms, to numerous to document,all are limiting skin loss to the epidermal layer only. For the time being they are superficial and really of unknown etiology. All blisters at the LE's are unroofed and redressed with xeroform, kerlix wrap and surgilast up as high as we can hope to keep it on the thighs. Upper thigh areas are covered with xeroform and obsite. Plain Xeroform over abdomen open areas only. Dressings were a gamboa to place, pt very agitated. Have to wonder if this is an allergic reaction or rhabdomylitic process. Recommend dressing changes PRN, Xeroform will probably become problematic to keep in place with time, can transition to plain kerlix wrap kept in place with surgilast, I have left some in the room. If that becomes to difficult would recommend wrap legs with chucks and hold in place with fishnet. Will recheck on this patient Thursday.
[2016-10-31 16:30] VITALS: BP 118/70; PULSE 75; RESP 22; O2SAT 96
[2016-10-31 19:02] LABS: BFWBC 84 /mm3; MONOCYTES,BODY FLUID 12 %; OTHER CELLS,BODY FLUID 8
[2016-10-31 20:30] VITALS: BP 138/62; PULSE 71; RESP 26; O2SAT 100
[2016-11-01] VITALS (7 sets, daily range): BP systolic 115–137; BP diastolic 61–93; PULSE 69–78; RESP 16–25; O2SAT 98–100
[2016-11-01] MEDS: Heparin 5,000 Unit/mL Inj SUBQ SCH ×3 (00:10→16:56)
[2016-11-01] MEDS: Meropenem Inj 1,000 MG in IV Premix 1 EACH IV SCH ×3 (00:13→16:52)
[2016-11-01] MEDS: 0.9% Sodium Chloride 1,000 ML IV SCH ×2 (04:13→14:36)
--- NOTE | 2016-11-01 04:39 | NUR ---
P: agitation I: schedule lactulose, reorientation, repositioning E: Thrashing around in bed which increases when care given. Opens eyes to name and makes some eye contact but unable to follow cues. Reaches for VJ marie. Restraints in use. Grabs at staff members. Pt really strong. Stooling from lactulose. Dark will urine via marie, approx 30ml/hr. Tele SR. BP stable. Afebrile. RA and sats in the high 90s. Addendum: 11/01/16 at 0633 by ROCCO CABRERA RN Starting to clear some in the AM hours. Able to hold pt's attention for a short time. States yes to pain and feeling cold. Does not answer all direct questions. Reoriented to place, date, time, and events leading to this visit. Stools x 3 per lactulose induced.
[2016-11-01 05:33] LABS: Mean Corpuscular Hemoglobin 34.6 pg (27.0-35.0); Mean Corpuscular Volume 103.7 fL (81-100)
[2016-11-01] MEDS: Lactulose 20 Gm/30 mL 30 mL Syrup TUBE SCH ×3 (08:30→20:30)
--- NOTE | 2016-11-01 09:47 | DRSVH ---
PROCEDURE: X-RAY CHEST ONE VIEW, PORTABLE ([id number]) INDICATIONS: hypoxia TECHNIQUE: One view of the chest was acquired. COMPARISON: [facility], CR, XR CHEST 1VW (PORTABLE), 10/30/2016, 18:42. FINDINGS: Surgical changes and devices: Enteric tube with the tip not well-seen however probably below the GE j unction. Left PICC line with the tip projecting in the mid SVC. Lungs and pleura: No pleural effusions or pneumothorax. Patchy retrocardiac opacities and bibasilar atelectasis. Low lung volumes Mediastinum: Mediastinal contours appear normal. Heart size is normal. Bones and chest wall: No suspicious bony lesions. Overlying soft tissues appear unremarkable. IMPRESSION: Mild patchy retrocardiac opacities possibly low grade atelectasis versus aspiration. Low lung volumes with scattered atelectasis. Support equipment as above Dictated by: Elian Vo M.D. on 11/01/2016 at 9:43 Approved by: Elian Vo M.D. on 11/01/2016 at 9:43
--- NOTE | 2016-11-01 11:07 | PCM.PNMED ---
Subjective Date of Service Nov 01, 2016 Subjective Patient is still encephalopathic but a little more awake today. He cannot respond to questions but does open his eyes and look at you when addressed. ROS and subjective not obtainable Exam Vital Signs Vital Sign - Last Date Time Temp Pulse Resp B/P Pulse Ox O2 Delivery O2 Flow Rate FiO2 11/01/16 08:30 36.5 71 25 137/71 100 Room Air 10/31/16 20:30 3.00 Intake and Output 10/31/16 10/31/16 11/01/16 Cumulative From/Thru 15:00 23:00 07:00 10/30/16 18:14 - 11/01/16 06:28 Intake Total 2100 ml 1885 ml 4504 ml Output Total 5700 ml 350 ml 6340 ml Balance -3600 ml 1535 ml -1836 ml Intake IV Total 2100 ml 1825 ml 4324 ml Tube Irrigant 60 ml 180 ml Output Urine Total 200 ml 350 ml 840 ml Other 5500 ml 5500 ml # Bowel Movements 1 3 5 Exam Patient is arousable but not really able to speak. He is still encephalopathic Icteric sclera Oropharynx unremarkable no droop Lungs are clear normal effort. Heart is regular without murmur. Abdomen is distended but nontender , no guarding. Extremities a 2-3+ edema. Multiple bullous lesions which involved then debrided. There is no evidence of infection or erythema or warmth. IVs and Medications Medications Reviewed: Medications were reviewed in detail Lab and Diagnostics Result Diagram: 11/01/16 0520 10/31/16 0430 Assessment & Plan Patient is a 66-year-old male with MADISON cirrhosis, chronic kidney disease, CAD, hypertension and recent GI bleed secondary to esophageal varices admitted for hepatic encephalopathy. 1. Acute hepatic encephalopathy. Present on admission. Active The patient is slowly improving with lactulose by via NG tube. We will continue this. We will check an ammonia level today. No fevers overnight. No evidence of GI bleeding. No evidence of SBP 5. Normal chest x-ray and urinalysis. The patient's mental status is much improved today he is able to converse to remember my name. 2. Acute on chronic kidney disease, stage 3. Present on admission. Active -Creatinine 4.22 on admit -Likely due to decreased oral intake from decreased level of consciousness -Avoid nephrotoxins -IV fluids with NS -Follow with CMP The patient does have gross anasarca with skin breakdown issues. I am going to give him Lasix IV 1 and TKO the saline to see if he can diurese while maintaining a stable to improved creatinine. I wonder about profound volume depletion versus hepatorenal syndrome. The concern is for possible hepatorenal syndrome. We will start him on Midodrin 10 mg 3 times a day , and Octreotide drip, and albumin 25 g every 8 hours to improve renal perfusion. We will follow the creatinine closely. 3. MADISON cirrhosis with varices, chronic. Present on admission -Hold spironolactone and Lasix until patient is stable -Nadolol will be resumed once hemodynamically stable. 4. Ascites. Present on admission -Paracentesis yesterday, no evidence of infection. He was started on meropenem. He did have lactic acidosis which is slowly improving. 5. Coronary artery disease, chronic. Present on admission -Presumed stable 6. Hypertension, chronic. Present on admission -Follow clinically 7. Persistent lactic acidosis. POA. We will continue to follow lactate closely and fluid resuscitated as well as initiate treatment for hepatorenal syndrome. 8. Mild hypernatremia. Will switch IV fluids to D5 1 half normal saline at 75 for next 12 hours. We will follow lites carefully. Patient Status: Patient is admitted under inpatient status with expected length of stay greater than 2 midnights due to severity of presenting symptoms, risk of adverse event, and complexity of treatment plan. Pain Evaluation: Adequate Pain Control VTE Prophylaxis: Sub-Q Heparin (Unfractionated) Resuscitation Status: CPR: Attempt Resuscitation Time spent 50 minutes Jimmy Ramírez MD Nov 01, 2016 11:07 Date of Service: 10/30/162033 PROCEDURE: X-RAY ABDOMEN, ONE VIEW ([id number]) INDICATIONS: Check NG tube (tube pulled, replaced) TECHNIQUE: One view of the abdomen acquired. COMPARISON: [facility], CR, XR ABD AP 1VW, 10/30/2016, 19:18. FINDINGS: Surgical changes and devices: Cholecystectomy clips. NG tube projects across the GE junction into the proximal stomach. Bowel: Bowel gas pattern is normal. Soft tissues: No suspicious abdominal calcifications. Visualized solid organ contours appear normal in size. Bones: No suspicious bony lesions. IMPRESSION: NG tube projects across the GE junction to the proximal stomach. Dobbhoff feeding tube is been removed. Dictated by: Daysi Moreno MD, PhD on 10/30/2016 at 20:55 Approved by: Daysi Moreno MD, PhD on 10/30/2016 at 20:55 Assessment & Plan Patient is a 66-year-old male with MADISON cirrhosis, chronic kidney disease, CAD, hypertension and recent GI bleed secondary to esophageal varices admitted for hepatic encephalopathy. 1. Acute hepatic encephalopathy. Present on admission. Active The patient is slowly improving with lactulose by via NG tube. We will continue this. We will check an ammonia level today. No fevers overnight. No evidence of GI bleeding. No evidence of SBP 5. Normal chest x-ray and urinalysis. The patient's mental status is much improved today he is able to converse to remember my name. 2. Acute on chronic kidney disease, stage 3. Present on admission. Active -Creatinine 4.22 on admit -Likely due to decreased oral intake from decreased level of consciousness -Avoid nephrotoxins -IV fluids with NS -Follow with CMP The patient does have gross anasarca with skin breakdown issues. I am going to give him Lasix IV 1 and TKO the saline to see if he can diurese while maintaining a stable to improved creatinine. I wonder about profound volume depletion versus hepatorenal syndrome. The concern is for possible hepatorenal syndrome. We will start him on Midodrin 10 mg 3 times a day , and Octreotide drip, and albumin 25 g every 8 hours to improve renal perfusion. We will follow the creatinine closely. 3. MADISON cirrhosis with varices, chronic. Present on admission -Hold spironolactone and Lasix until patient is stable -Nadolol will be resumed once hemodynamically stable. 4. Ascites. Present on admission -Paracentesis yesterday, no evidence of infection. He was started on meropenem. He did have lactic acidosis which is slowly improving. 5. Coronary artery disease, chronic. Present on admission -Presumed stable 6. Hypertension, chronic. Present on admission -Follow clinically 7. Persistent lactic acidosis. POA. We will continue to follow lactate closely and fluid resuscitated as well as initiate treatment for hepatorenal syndrome. 8. Mild hypernatremia. Will switch IV fluids to D5 1 half normal saline at 75 for next 12 hours. We will follow lites carefully. Patient Status: Patient is admitted under inpatient status with expected length of stay greater than 2 midnights due to severity of presenting symptoms, risk of adverse event, and complexity of treatment plan. Pain Evaluation: Adequate Pain Control VTE Prophylaxis: Sub-Q Heparin (Unfractionated) Resuscitation Status: CPR: Attempt Resuscitation Time spent 50 minutes Jimmy Ramírez MD Nov 01, 2016 11:07
[2016-11-01 13:24] LABS: Mean Corpuscular Hemoglobin 34.4 pg (27.0-35.0)
--- NOTE | 2016-11-01 16:38 | NUR ---
Social Work Initial Assessment D: EMR Reviewed. See initial assessment. Pt is a 66Y old male admitted for Hypatic Angiopathy. Insurance is [employer]. PCP is Dr. Campo. Readmission score is 4/8-High. Pt currently has NG tube and AMS. BLACK met with Pt's daughter at bedside to complete IA. Pt continues to lives home alone in [place]. Pt is readmit, discharged Home on 10/26/16. Pt does not use any DME but has it available to him. Pt drives locally but relies on his daughter for long distance transport. BLACK discussed services, Pt's dtr agreeable to referral. BLACK contacted Orlando Lucia at [facility] and provided referral. F2F in folder needs signature. Access given. BLACK [facility]JUAN [facility]/ISABELA when medically stable. BLACK will continue to follow. A: Pt who lives independently, readmission P: BLACK anticipates Pt to discharge home via POV with [facility], RN/OT/JUAN PABLO/ISABELA when medically stable. BLACK will continue to follow. F2F in folder, needs signature. BLACK will continue to follow. JUAN PABLO Day Addendum: 11/01/16 at 1641 by SAVANNA ROMAN Amended: Links added.
[2016-11-01] MEDS: Octreotide Inj 500 MCG in 0.9% Sodium Chloride 99 ML IV SCH (16:52)
[2016-11-01] MEDS: Albumin 25% 25 GM in IV Premix 1 EACH IV SCH (16:55)
[2016-11-01] MEDS: Dextrose 5% 0.45% NaCl 1,000 ML IV SCH (16:55)
[2016-11-01] MEDS ORDERED: 0.9% Sodium Chloride 250 ML ONE (17:04)
--- NOTE | 2016-11-01 18:06 | NUR ---
Transfer Transferred pt out of CCU room # 2014 to [facility] room #2009 at 1800. Report given to Houston Garcia RN. Prior to transfer, replaced all bilateral xero foam, kerlix and net wraps on bilateral LE. Changed bedding after large loose incontinent BM. PICC dressing changed by IV therapy. Started albumin, D5 1/2 NS with 20 K+, and octreotide. Moses draining dark will urine. RA at 99% Family notified of transfer. All personal belongs left with pt. Pt more awake this evening than most of the day. Answering yes and no questions. Following simple commands.
--- NOTE | 2016-11-01 18:32 | NUR ---
Transfer from CCU Pt. was transferred from room 2013 to [facility] room 2008 at ~1815. Pt. has a decreased LOC that is improving since admission, Pt. is on 2pt restraint due to Pt. trying to pull out [place] tube. Pt. denies pain at this time, Pt. is trying to pull the restraints off.
[2016-11-02] VITALS (9 sets, daily range): BP systolic 103–127; BP diastolic 70–79; PULSE 58–71; RESP 12–20; O2SAT 95–99
[2016-11-02] MEDS: Albumin 25% 25 GM in IV Premix 1 EACH IV SCH ×3 (00:31→16:43)
[2016-11-02] MEDS: Heparin 5,000 Unit/mL Inj SUBQ SCH ×3 (00:41→16:43)
[2016-11-02] MEDS: Meropenem Inj 1,000 MG in IV Premix 1 EACH IV SCH ×2 (00:41→09:00)
[2016-11-02] MEDS: Octreotide Inj 500 MCG in 0.9% Sodium Chloride 99 ML IV SCH ×2 (00:41→10:35)
[2016-11-02 05:30] LABS: Mean Corpuscular Hemoglobin 34.6 pg (27.0-35.0)
[2016-11-02] MEDS: Dextrose 5% 0.45% NaCl 1,000 ML IV SCH ×2 (06:11→19:36)
--- NOTE | 2016-11-02 06:24 | NUR ---
Mentation Pt AOx2, unable to accurately state time. Frequent reorientation to situation needed. Significantly agitated when awake, calling out for help, attempting to remove lines/drains, constant shifting in bed. 1mg IVP lorazepam administered x2 this shift, pt resting comfortably on reassessments. Pt responsive to light stimuli, identifies needs, follows commands. VSS, tele SR 60s. Ongoing loose stools.
[2016-11-02] MEDS: Lactulose 20 Gm/30 mL 30 mL Syrup TUBE SCH ×3 (07:46→19:32)
--- NOTE | 2016-11-02 11:10 | PCM.PNMED ---
Subjective Date of Service Nov 02, 2016 Subjective He is overall improving. He is able to talk and I remember my name yesterday. He is still somewhat drowsy this morning. No problems overnight. Exam Vital Signs Vital Sign - Last Date Time Temp Pulse Resp B/P Pulse Ox O2 Delivery O2 Flow Rate FiO2 11/02/16 09:59 65 11/02/16 08:56 36.3 12 126/70 97 Room Air 10/31/16 20:30 3.00 Intake and Output 11/01/16 11/01/16 11/02/16 Cumulative From/Thru 15:00 23:00 07:00 10/30/16 18:14 - 11/02/16 06:07 Intake Total 1880 ml 1257 ml 7641 ml Output Total 450 ml 350 ml 7140 ml Balance 1430 ml 907 ml 501 ml Intake Oral 0 ml 0 ml 0 ml IV Total 1880 ml 1257 ml 7461 ml Tube Irrigant 180 ml Output Urine Total 450 ml 350 ml 1640 ml Other 5500 ml # Bowel Movements 2 7 Exam He is sleeping comfortably.. Neck supple. Lungs are clear with normal effort and rate. Heart is regular without murmur. Abdomen is distended but not tense. Extremities a 2+ edema and the rest of bulla which are all wrapped today. There is no erythema. IVs and Medications Medications Reviewed: Medications were reviewed in detail Lab and Diagnostics Result Diagram: 11/02/1650911/02/16509 Assessment & Plan Patient is a 66-year-old male with MADISON cirrhosis, chronic kidney disease, CAD, hypertension and recent GI bleed secondary to esophageal varices admitted for hepatic encephalopathy. 1. Acute hepatic encephalopathy. Present on admission. Active He is improving with lactulose. We will repeat his ammonia today. We will continue lactulose aggressively. 2. Acute kidney injury on chronic kidney disease, stage 3. Present on admission. Active -This likely represents ATN. I did start him on a treated side as well as Midodrin yesterday for possible hepatic renal syndrome. Will ask Dr. Navas nephrology for his opinion and management guidelines today. 3. MADISON cirrhosis with varices, chronic. Present on admission -Hold spironolactone and Lasix until patient is stable -Nadolol will be resumed once hemodynamically stable. 4. Ascites. Present on admission -Paracentesis negative for evidence of SBP by cell counts or culture. We will DC meropenem. 5. Coronary artery disease, chronic. Present on admission -Presumed stable 6. Hypertension, chronic. Present on admission -Follow clinically 7. Persistent lactic acidosis. POA. We will continue to follow lactate closely and fluid resuscitated as well as initiate treatment for hepatorenal syndrome. 8. Mild hypernatremia. Will switch IV fluids to D5 1 half normal saline at 75 for next 12 hours. We will follow lites carefully. Patient Status: Patient is admitted under inpatient status with expected length of stay greater than 2 midnights due to severity of presenting symptoms, risk of adverse event, and complexity of treatment plan. Pain Evaluation: Adequate Pain Control VTE Prophylaxis: Sub-Q Heparin (Unfractionated) Resuscitation Status: CPR: Attempt Resuscitation Time spent 30 minutes Jimmy Ramírez MD Nov 02, 2016 11:10 Brain: No midline shift. No intracranial masses or hemorrhage. Thompson-white matter interface is normal. Skull and face: Calvarium and visualized facial bones are intact, without suspicious lesions. Of tissue density lesions noted in the external auditory canals bilaterally which could represent ear wax or neoplastic process. Recommend correlation with direct visualization. Sinuses: Visualized sinuses and mastoids are clear. IMPRESSION: 1. No acute intracranial disease process. 2. Bilateral external auditory canal soft tissue density lesions. Recommend direct visualization to differentiate earwax from malignancy. Dictated by: Daysi Moreno MD, PhD on 10/30/2016 at 19:52 Approved by: Daysi Moreno MD, PhD on 10/30/2016 at 19:52 Date of Service: 10/30/162033 PROCEDURE: X-RAY ABDOMEN, ONE VIEW ([id number]) INDICATIONS: Check NG tube (tube pulled, replaced) TECHNIQUE: One view of the abdomen acquired. COMPARISON: [facility], CR, XR ABD AP 1VW, 10/30/2016, 19:18. FINDINGS: Surgical changes and devices: Cholecystectomy clips. NG tube projects across the GE junction into the proximal stomach. Bowel: Bowel gas pattern is normal. Soft tissues: No suspicious abdominal calcifications. Visualized solid organ contours appear normal in size. Bones: No suspicious bony lesions. IMPRESSION: NG tube projects across the GE junction to the proximal stomach. Dobbhoff feeding tube is been removed. Dictated by: Daysi Moreno MD, PhD on 10/30/2016 at 20:55 Approved by: Daysi Moreno MD, PhD on 10/30/2016 at 20:55 Assessment & Plan Patient is a 66-year-old male with MADISON cirrhosis, chronic kidney disease, CAD, hypertension and recent GI bleed secondary to esophageal varices admitted for hepatic encephalopathy. 1. Acute hepatic encephalopathy. Present on admission. Active He is improving with lactulose. We will repeat his ammonia today. We will continue lactulose aggressively. 2. Acute kidney injury on chronic kidney disease, stage 3. Present on admission. Active -This likely represents ATN. I did start him on a treated side as well as Midodrin yesterday for possible hepatic renal syndrome. Will ask Dr. Navas nephrology for his opinion and management guidelines today. 3. MADISON cirrhosis with varices, chronic. Present on admission -Hold spironolactone and Lasix until patient is stable -Nadolol will be resumed once hemodynamically stable. 4. Ascites. Present on admission -Paracentesis negative for evidence of SBP by cell counts or culture. We will DC meropenem. 5. Coronary artery disease, chronic. Present on admission -Presumed stable 6. Hypertension, chronic. Present on admission -Follow clinically 7. Persistent lactic acidosis. POA. We will continue to follow lactate closely and fluid resuscitated as well as initiate treatment for hepatorenal syndrome. 8. Mild hypernatremia. Will switch IV fluids to D5 1 half normal saline at 75 for next 12 hours. We will follow lites carefully. Patient Status: Patient is admitted under inpatient status with expected length of stay greater than 2 midnights due to severity of presenting symptoms, risk of adverse event, and complexity of treatment plan. Pain Evaluation: Adequate Pain Control VTE Prophylaxis: Sub-Q Heparin (Unfractionated) Resuscitation Status: CPR: Attempt Resuscitation Time spent 30 minutes Jimmy Ramírez MD Nov 02, 2016 11:10
--- NOTE | 2016-11-02 13:28 | NUR ---
Evaluation completed. Rec: Stim diet. 3-5 bites and sips. POST EXCHANGE MANAGER to follow. Medication through NG tube Please go to "Notes" then click on "Assessments and Notes" (bottom left corner of screen). Then select appropriate discipline tab on top of screen.
--- NOTE | 2016-11-02 16:41 | CONS ---
[address] [address] CONSULTATION REPORT PATIENT: HAIDER BRITT : 1950 MR#: [id number] ADMIT: 10/30/2016 JOB ID: [id number] DATE OF SERVICE: 11/02/2016 HISTORY: The patient is an unfortunate 66-year-old, white male who has a history of MADISON cirrhosis and chronic kidney disease. He was admitted to [facility] for significant change in his mental status along with an upper GI bleed. His creatinine on admission was 4.22 and renal consultation is being sought for further evaluation of his renal dysfunction. Much of the history has been obtained from the patient's chart and from the patient's daughter. He has a longstanding history of MADISON cirrhosis and has been on a transplant list for the [facility] for several years. His MADISON cirrhosis has been complicated by recurrent ascites, portal hypertension, and esophageal varices. He also has a history of hepatic encephalopathy and at time of admission his ammonia level was over 400. He also has a history of chronic kidney disease for which he sees the nephrology group in [place] for. I am unsure as to exactly what the etiology of his renal function is as those records are not obtain available at this time. Reviewing his old laboratory, I see that back in 2013 his creatinine was 1.35. Apparently, he has for awhile been on the renal transplant list and there is some discussion as far as getting him ready for dialysis. I am unsure as to what his current baseline renal function is. Since admission, he has maintained a fairly good blood pressure with some occasional dips down into the 70s. His urine output has been fair. Yesterday, he had a total of 800 mL of urine out and so far today he has had 350 mL. He also had a large volume paracentesis done with the removal of over 5 L of fluid on Thursday. His sodium has remained elevated at 150 yesterday and today it was 152 with a persistent metabolic acidosis. Reviewing his chart, I do not see any utilization of any overt nephrotoxins nor any contrast studies. He was given a trial of octreotide with minimal effect. PAST MEDICAL HISTORY: Significant for severe MADISON cirrhosis which is near end-stage chronic kidney disease, hypertension with hypertensive heart disease and hypertensive nephrosclerosis, esophageal varices, portal hypertension, anemia of multifactorial and a history of coronary artery disease. PAST SURGICAL HISTORY: Significant for colonoscopy and recurrent abdominal paracenteses. ALLERGIES: The patient is allergic to: 1. PENICILLIN. 2. LISINOPRIL. 3. LOSARTAN. SOCIAL HISTORY: He denies the current use of alcohol, tobacco, or illicit drugs. FAMILY HISTORY: Noncontributory. REVIEW OF SYSTEMS: Unobtainable. MEDICATIONS: At time of my evaluation, include: 1. Midodrine. 2. Octreotide. 3. Lorazepam. 4. Zofran. PHYSICAL EXAMINATION: Reveals a quite somnolent, pale and mildly icteric, 66-year-old, white male who was unresponsive to my stimuli. His blood pressure was 126/70 with a pulse rate of 62. HEENT examination is remarkable for pale and icteric sclerae. Neck is supple without adenopathy, thyromegaly or jugular venous distention. Lungs showed some scattered rhonchi. Heart was regular and rhythmical with a soft systolic murmur. Abdomen was distended with a free fluid wave noted. The abdomen was nontense. There was some mild hepatomegaly noted. There was no tenderness, rebound, guarding, masses or hepatosplenomegaly. Extremities showed some mild generalized edema and also numerous excoriations were noted on both proximal and distal lower extremities along with the right side. LABORATORY EXAMINATION: On admission, his hemoglobin was 12.0. This morning it is 8.1, he has macrocytic indices. His platelet count is 59,000. This morning, his sodium is 152, potassium 4.5, chloride 117, CO2 of 19, BUN and creatinine 63 and 4.29, his total bili was 4.7, AST was 367 and ALT was 95. Albumin is 2.2 and ammonia level this morning is 99. Urinalysis showed a specific gravity 1.020, pH was 8. Tests for protein, glucose were negative. IMPRESSION: 1. Chronic kidney disease, stage IV. 2. Chronic interstitial nephritis. 3. Hypertension with hypertensive heart disease and hypertensive nephrosclerosis. 4. Hypernatremia. 5. Metabolic acidosis. RECOMMENDATION: I would like to stop the octreotide and change his maintenance IV to half-normal saline. I would also like to obtain some additional information from the [place] group as to his baseline renal function and some more information on the etiology of his renal dysfunction. Once again, I would like to thank you for allowing me to participate in the care of this rather unfortunate patient. I will be following him closely with you.
--- NOTE | 2016-11-02 20:00 | NUR ---
Mentation Pt drowsy and very difficult to understand for first several hours of shift, Pt became more alert in the late am/early afternoon, speech therapy contacted who came back and assessed Pt, Pt placed on stim diet which Pt tolerated well at dinner time. Restraints left in place as Pt still restless/reaching for lines when first waking up, aware.
--- NOTE | 2016-11-02 20:00 | NUR ---
Dressing change Pt found incontinent of a large amt of stool (green liquid) Changed all his dressings to bilat lower extremities per wound care instructions. Wounds are bright red and painful to touch. Very little serous discharge. Legs elevated on pillows. Will cont to monitor
[2016-11-03] VITALS (9 sets, daily range): BP systolic 106–126; BP diastolic 66–80; PULSE 51–66; RESP 16–20; O2SAT 95–98
--- NOTE | 2016-11-03 00:10 | NUR ---
Heparin admin Paged MD regarding scheduled heparin. Last PLT count was 59. Per MD go ahead and give as scheduled. Care continues
[2016-11-03] MEDS: Heparin 5,000 Unit/mL Inj SUBQ SCH ×2 (00:27→08:30)
[2016-11-03] MEDS: Albumin 25% 25 GM in IV Premix 1 EACH IV SCH ×2 (00:33→10:25)
[2016-11-03] MEDS ORDERED: 0.9% Sodium Chloride 250 ML ONE ×2 (01:28→21:05)
--- NOTE | 2016-11-03 08:56 | PCM.PNMED ---
Subjective Date of Service Nov 03, 2016 Subjective Patient is sleeping comfortably. He did not awaken during the initial visit. His family notes he was more mentally oriented last night. No overnight events. Exam Vital Signs Vital Sign - Last Date Time Temp Pulse Resp B/P Pulse Ox O2 Delivery O2 Flow Rate FiO2 11/03/16 05:09 36.4 60 18 121/70 97 Room Air 10/31/16 20:30 3.00 Intake and Output 11/02/16 11/02/16 11/03/16 Cumulative From/Thru 15:00 23:00 07:00 10/30/16 18:14 - 11/03/16 05:43 Intake Total 1481 ml 1096 ml 38795 ml Output Total 350 ml 400 ml 7890 ml Balance 1131 ml 696 ml 2328 ml Intake Oral 0 ml 0 ml 0 ml IV Total 1241 ml 1096 ml 9798 ml Tube Irrigant 240 ml 420 ml Output Urine Total 350 ml 400 ml 2390 ml Other 5500 ml # Bowel Movements 1 8 Exam Alert patient is comfortable. No distress. Normocephalic Neck is supple Lungs are clear. Heart is regular without murmur gallop or rub. Abdomen is distended. No organomegaly. Extremities with 2+ edema. Multiple bulla are uncertain distant have been wrapped. There is no erythema of the legs. IVs and Medications Medications Reviewed: Medications were reviewed in detail Lab and Diagnostics Result Diagram: 11/02/16 0510 11/03/16 0400 Assessment & Plan Patient is a 66-year-old male with MADISON cirrhosis, chronic kidney disease, CAD, hypertension and recent GI bleed secondary to esophageal varices admitted for hepatic encephalopathy. 1. Acute hepatic encephalopathy. Present on admission. Active He is improving with lactulose. He again is doing better. We will recheck his ammonia today. 2. Acute kidney injury on chronic kidney disease, stage 3. Present on admission. Active -This likely represents ATN. Nephrology has seen him. They doubt hepatorenal syndrome. With simplified his regimen will continue to follow his acute on chronic kidney disease carefully. He is maintaining a reasonable urine output. 3. MADISON cirrhosis with varices, chronic. Present on admission -Hold spironolactone and Lasix until patient is stable -Nadolol will be resumed once hemodynamically stable. 4. Ascites. Present on admission -No clinical evidence of SBP. The patient will be on lifelong antibiotic prophylaxis. 6. Hypertension, chronic. Present on admission -Follow clinically 7. Persistent lactic acidosis. POA. We will continue to follow lactate closely and fluid resuscitated as well as initiate treatment for hepatorenal syndrome. 8. Mild hypernatremia. Will switch IV fluids to D5 1 half normal saline at 75 for next 12 hours. We will follow lytes carefully. His sodium is 150 today. 9. GI bleed. Esophageal ulcer. Continue Protonix and Carafate once awake. The patient has no clinical evidence of recurrent bleeding. 10. Mild acute and chronic anemia without evidence of rectal bleeding. We will follow carefully and continue with Protonix IV until he is awake. 11. Thrombocytopenia. This is acute on chronic. Will hold heparin at this point and follow closely. Patient Status: Patient is admitted under inpatient status with expected length of stay greater than 2 midnights due to severity of presenting symptoms, risk of adverse event, and complexity of treatment plan. Pain Evaluation: Adequate Pain Control VTE Prophylaxis: Sub-Q Heparin (Unfractionated) Resuscitation Status: CPR: Attempt Resuscitation Time spent 25 minute Jimmy Ramírez MD Nov 03, 2016 08:56
[2016-11-03] MEDS: Dextrose 5% 0.45% NaCl 1,000 ML IV SCH (10:24)
[2016-11-03] MEDS: Lactulose 20 Gm/30 mL 30 mL Syrup TUBE SCH ×3 (10:24→21:46)
--- NOTE | 2016-11-03 12:07 | NUR ---
Restraints He has been sleeping and calm this morning. Restraints were discontinued at 1045 after his NG tube was discontinued. He has been appropriate in his behavior since and has not tried to pull at his lines. Family educated about restraint removal. Care continues.
[2016-11-03] MEDS: Dextrose 5% 1,000 ML IV SCH ×2 (13:55→21:08)
--- NOTE | 2016-11-03 14:06 | NUR ---
NUTRITION FOLLOW UP: ASSESS: 66 YO male admitted with hepatic encephalopathy due to chronic liver disease. Pt remains on Stimulation diet; pt has been without adequate nutrition X 4 days. PMHx: MADISON cirrhosis, HTN, recent GI bleed with esophageal varices identified, stage III renal disease, CAD. DIET: Stimulation. PO intake bites. LABS: Reviewed. Na 150, BUN 65, Cr 4.21, Glu 132, Ca 8.2, (11/02): NH3 99, Alb 2.2 MEDICATIONS: Reviewed. Lactulose, lasix. GI: BM x 1 (11/03). SKIN: Superficial blisters on LE and abdomen per military equipment specialist. ANTHROPOMETRICS: Current Wt: 113.2 kg, BMI: 37.9 kg/m2. IBW: 70 kg (169% IBW) ESTIMATED NEEDS (LIVER DISEASE/BMI): Calories: 5145-4110 kcal/day (22-25 kcal/kg BW) Protein: 105-126 g/day (1.5-1.8 g/kg IBW) NUTRITION DIAGNOSIS: 1) Inadequate oral intake related to hepatic encephalopathy, as evidenced by NPO/Stim diet X 4 days.---PERSISTS. 2) Increased nutrient needs related to wound healing/increased demand for nutrients as evidenced by chronic liver disease, wounds.---PERSISTS. INTERVENTION: 1) Diet advancement per speech therapy. 2) Once diet advanced will consider adding nutrition supplements. 3) If diet unable to be advanced in the next 1-3 days consider nutrition support. MONITOR/EVALUATE: Diet advance/tolerance, PO intake, labs, GI/nutrition status. Follow per high nutrition risk guidelines.
--- NOTE | 2016-11-03 14:10 | PCM.PNMED ---
Subjective Date of Service Nov 03, 2016 Subjective Pt is drowsy but arousable. family is at bedside. NG tube was removed. Exam Vital Signs Vital Sign - Last Date Time Temp Pulse Resp B/P Pulse Ox O2 Delivery O2 Flow Rate FiO2 11/03/16 13:46 36.8 66 18 117/71 95 Room Air 10/31/16 20:30 3.00 Intake and Output 11/02/16 11/02/16 11/03/16 Cumulative From/Thru 14:59 22:59 06:59 10/30/16 18:14 - 11/03/16 05:43 Intake Total 1481 ml 1096 ml 15440 ml Output Total 350 ml 400 ml 7890 ml Balance 1131 ml 696 ml 2328 ml Intake Oral 0 ml 0 ml 0 ml IV Total 1241 ml 1096 ml 9798 ml Tube Irrigant 240 ml 420 ml Output Urine Total 350 ml 400 ml 2390 ml Other 5500 ml # Bowel Movements 1 8 Lab and Diagnostics Result Diagram: 11/02/16 0510 11/03/16 0400 Assessment & Plan 1. FRANCESCA on CKD-unknown stage vs worsening CKD now reached ESRD DDx: overdiuresis, ATN, HRS type 2. - per family, pt is also on the kidney transplant list. - They were informed that the patient will need MANAGER ICU at some point. - etiology of CKD unknown, ? hypertensive nephrosclerosis. 2. Hepatic encephalopathy, improving. 3. MADISON c/b ascites and EV - MELD score 31. 4. Hypernatremia 5. Lactic acidosis, resolved. Plan: repeat UA, urine Na, protein and creatinine. start d5w 80 ml/hr, d/c dextrose 1/2 NS will contact his primary language teacher for more info. VTE Prophylaxis: Sub-Q Heparin (Unfractionated) Resuscitation Status: CPR: Attempt Resuscitation Joi Mi MD Nov 03, 2016 14:10
[2016-11-03 15:20] LABS: APPEARANCE,URINE HAZY (CLEAR,HAZY); COLOR,URINE YELLOW (YELLOW); OCCULT BLOOD,URINE LARGE (NEGATIVE); PH,URINE 5.5 (5.0-8.0); UROBILINOGEN,URINE NORMAL (NORMAL)
[2016-11-03] MEDS: Pantoprazole 4 mg/mL 10 mL Inj IVPUSH SCH (16:45)
--- NOTE | 2016-11-03 18:28 | NUR ---
Wound Care Pt sen at bedside for wound care and dressing change at both lower legs, thighs and ABD. Wounds remain stable and needed minimal debridement today with gauze and saline, forceps and scissors. Drainage continues to be moderate, yellowish in nature, no odor and no new blisters are noted. Pt conversant today and tolerated treatment well. All leg and thigh ulcers were covered with Xeroform, abd pads, kerlix and fishnet. Abd wounds had xeroform applied only. Recommend nursing change these dressings tomorrow, CWS will reassess Thursday.
[2016-11-04] VITALS (8 sets, daily range): BP systolic 110–136; BP diastolic 67–80; PULSE 54–90; RESP 17–20; O2SAT 97–99
[2016-11-04 03:18] LABS: BASOPHILS % (AUTO) 0.3 % (0-3); EOSINOPHILS % (AUTO) 7.5 % (0-5); MONOCYTES % (AUTO) 11.6 % (4-12); Mean Corpuscular Hemoglobin 34.4 pg (27.0-35.0); Mean Corpuscular Volume 108.1 fL (81-100); NEUTROPHILS % (AUTO) 62.7 % (40-74); Platelet Count 48 bil/L (150-400)
[2016-11-04 03:48] LABS: Phosphorus 4.3 mg/dL (2.5-4.9)
[2016-11-04 03:59] LABS: Unsaturated Iron Binding 8.4 ug/dL
[2016-11-04 04:08] LABS: Hepatitis A Antibody IgM Negative (Negative); Hepatitis B Core Antibody IgM Negative (Negative)
--- NOTE | 2016-11-04 06:08 | NUR ---
Mentation Pt drowsy at beginning of shift, necessitating repeated loud stimuli to rouse; once awake, pt AOx3, able to converse coherently with staff and participate in care. Lactulose administration ongoing, diarrhea throughout shift. Pt educated to function of medication regimen when questioning why upper extremities were swollen. Pt resting throughout shift. VSS, tele SB/SR 50s-60s with PVCs.
[2016-11-04] MEDS: Pantoprazole 4 mg/mL 10 mL Inj IVPUSH SCH ×2 (07:58→18:35)
[2016-11-04] MEDS: Lactulose 20 Gm/30 mL 30 mL Syrup TUBE SCH ×3 (07:58→20:30)
[2016-11-04] MEDS: Dextrose 5% 1,000 ML IV SCH (11:04)
--- NOTE | 2016-11-04 12:13 | DRSVH ---
PROCEDURE: US GUIDED PARACENTESIS, PRIMARY ([id number]) INDICATIONS: AMS TECHNIQUE: The indications, alternatives, benefits, risks, and complications of the procedure were explained to the patient. Written informed consent was obtained and placed in the chart. The abdomen and pelvis were examined sonographically, and an appropriate site was chosen for paracentesis. The skin was pre pared and draped in the usual sterile fashion, and 1% lidocaine was infiltrated from the skin down th rough the peritoneal surface. A 19-gauge catheter-covered needle was then introduced into the perito estelle space, the catheter was advanced and the needle was withdrawn, and thereafter peritoneal fluid w as withdrawn. The catheter was then removed and a dressing was applied. The fluid was discarded if the clinician did not order diagnostic testing of the fluid. COMPARISON: None. FINDINGS: Access site: Right lower quadrant Needle: One-Step centesis catheter with introducer needle. Fluid volume and description: 5620 serous clear fluid Fluid sent for diagnostic testing: At the request of the ordering health care provider Medications: 1% lidocaine for local anaesthesia. Complications: None. IMPRESSION: Successful ultrasound-guided paracentesis. Dictated by: Jaxson Lim M.D. on 11/04/2016 at 12:11 Approved by: Jaxson Lim M.D. on 11/04/2016 at 12:11
--- NOTE | 2016-11-04 14:43 | PCM.PNMED ---
Subjective Date of Service Nov 04, 2016 Subjective The patient is somnolent this morning but generally been improving. He has been talking and more verbose with staff and family. No untoward events overnight. No reports of dyspnea or abdominal pain. No recent fevers or chills. Exam Vital Signs Vital Sign - Last Date Time Temp Pulse Resp B/P Pulse Ox O2 Delivery O2 Flow Rate FiO2 11/04/16 12:47 37.0 63 18 110/67 97 Room Air 10/31/16 20:30 3.00 Intake and Output 11/03/16 11/03/16 11/04/16 Cumulative From/Thru 15:00 23:00 07:00 10/30/16 18:14 - 11/04/16 05:58 Intake Total 1523 ml 1376 ml 69894 ml Output Total 350 ml 400 ml 8640 ml Balance 1173 ml 976 ml 4477 ml Intake Oral 500 ml 200 ml 700 ml IV Total 1023 ml 1176 ml 65085 ml Tube Irrigant 420 ml Output Urine Total 350 ml 400 ml 3140 ml Other 5500 ml # Bowel Movements 2 10 Exam She is somnolent. Neck is supple. Lungs are clear, normal effort. Heart is regular without murmur. Abdomen is distended with normoactive bowel sounds nontender Extremities a 2+ edema. He has multiple on surface bullous lesions but no evidence of erythema of the skin. IVs and Medications Medications Reviewed: Medications were reviewed in detail Lab and Diagnostics Result Diagram: 11/04/1630911/04/16309 Assessment & Plan 1. Acute hepatic encephalopathy, POA. This is improving we will continue lactulose at current rate. Mrs. Sparks he is awake we will advance his diet now and remove his NG tube. 2. Acute kidney injury, chronic kidney disease stage IV. This also is improving. His hypernatremia has improved as well. This point we will sort out his IV fluid rate and continue to follow his creatinine which is now down to 3.6. 3. Gross ascites, POA. Negative for SBP by cell counts and cultures. 4. 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 5. Mild anemia and context of recent upper GI bleed and acute blood loss anemia. No clinical evidence of rectal bleeding. We will follow closely with serial crits 6. Thrombocytopenia, POA. This may related to his liver disease. However have stopped his upper for the time being we will use compressive devices for DVT prophylaxis and start physical therapy. Pain Evaluation: Adequate Pain Control VTE Prophylaxis: Sub-Q Heparin (Unfractionated) Resuscitation Status: CPR: Attempt Resuscitation Time spent 30 minute Jimmy Ramírez MD Nov 04, 2016 14:43
--- NOTE | 2016-11-04 16:42 | NUR ---
IV His left upper arm and left neck peripheral IVs x2 were removed per IV therapy's suggestion. He tolerated it well. The left neck site bled through the first dressing. Pressure was applied and a new dressing applied. It remains clean, dry, and intact. Care continues.
--- NOTE | 2016-11-04 18:02 | NUR ---
Wound Care Pt seen for wound care today, completely lucid today which was good to see. Pt tolerated dressing changes with min discomfort today. Wounds continue to weep at bilateral lower extremities, groin and abdomen, but are stable and uninfected. Cleaned with gauze then replaced Xeroform abd pads kerlix wrap and fishnet. Continue daily dressing changes consider lower leg compression wraps tomorrow.
[2016-11-05] VITALS (7 sets, daily range): BP systolic 102–119; BP diastolic 62–75; PULSE 60–73; RESP 16–24; O2SAT 97–98
[2016-11-05] MEDS: Dextrose 5% 1,000 ML IV SCH ×2 (03:25→17:02)
--- NOTE | 2016-11-05 05:43 | NUR ---
Wounds, mental status, bowel movement and activity. Patient has continued to have several large bowel movements per shift. Patient remains incontinent of bowel. Patient was turned and checked every two hour or sooner to prevent skin breakdown. Skin on the patients back and butt is intact. Patient is able to provide slight assistance when turning from side to side in bed. Patient become slightly short of breath with activity. Patients lungs are clear at the top and diminished in the bases. Patient is maintaining saturations in the 90s on room air. Both dressings on the patients legs had to be changed due to the large amounts of loose stool being passed by the patient. Both legs and the patient ABD are weeping moderate amounts of serous fluid. No lactulose was given this evening. Patient is still slow answer questions but is alert and answering all assessment questions appropriately.
[2016-11-05 07:10] LABS: Vitamin B12 >1999 pg/mL (211-946)
[2016-11-05] MEDS ORDERED: Darbepoetin Alfa 60 mCg/0.3 mL Inj SUBQ ONE (08:00)
[2016-11-05] MEDS: Lactulose 20 Gm/30 mL 30 mL Syrup TUBE SCH ×3 (08:14→22:18)
[2016-11-05] MEDS: Pantoprazole 4 mg/mL 10 mL Inj IVPUSH SCH (08:14)
[2016-11-05 08:35] LABS: Mean Corpuscular Hemoglobin 34.4 pg (27.0-35.0); Mean Corpuscular Volume 109.4 fL (81-100)
--- NOTE | 2016-11-05 12:37 | PCM.PNMED ---
Subjective Date of Service Nov 05, 2016 Subjective Mentally patient is much improved to near baseline. He is quite weak with regards to his legs. He denies any confusion. His abdomen is distended with his chronic ascites. She denies any nausea vomiting or blood per rectum. His hematocrit is trending down in spite of any obvious clinical rectal bleeding. No nausea. Exam Vital Signs Vital Sign - Last Date Time Temp Pulse Resp B/P Pulse Ox O2 Delivery O2 Flow Rate FiO2 11/05/16 11:54 36.5 64 24 102/65 97 Room Air 10/31/16 20:30 3.00 Intake and Output 11/04/16 11/04/16 11/05/16 Cumulative From/Thru 15:00 23:00 07:00 10/30/16 18:14 - 11/05/16 06:42 Intake Total 2207 ml 592 ml 98992 ml Output Total 350 ml 300 ml 9290 ml Balance 1857 ml 292 ml 6626 ml Intake Oral 1400 ml 100 ml 2200 ml IV Total 807 ml 492 ml 81334 ml Tube Irrigant 420 ml Output Urine Total 350 ml 300 ml 3790 ml Other 5500 ml # Bowel Movements 2 4 16 Exam Lower oriented 3, fluent speech. No distress. Icteric sclerae Oropharynx unremarkable Neck supple. Lungs are clear, normal effort. Heart is regular. This distended but soft and nontender. Extremities with 3+ edema and multiple lesions where his large bullae were spontaneously debrided. No surrounding erythema. IVs and Medications Medications Reviewed: Medications were reviewed in detail Lab and Diagnostics Result Diagram: 11/05/1682811/05/16828 Assessment & Plan 1. Acute hepatic encephalopathy, POA. This is improving we will continue lactulose at current rate. No change to this for now. He will require discharge with lactulose at least 20 g 3 times a day. 2. Acute kidney injury, chronic kidney disease stage IV. This also is improving. His hypernatremia has improved as well. This likely represents ATN secondary to hypovolemia and hypotension time to admit on top of his chronic kidney disease stage IV. 3. Gross ascites, POA. Chronic. Negative for SBP by cell counts and cultures. No further management at this point. 4. 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 5. Mild anemia and context of recent upper GI bleed and acute blood loss anemia. No clinical evidence of rectal bleeding. We will follow closely with serial crits recent endoscopy from previous admission indicated varices, nonbleeding as well as esophageal ulcer. We will resume Protonix twice a day and sucralfate 4 times a day. 6. Thrombocytopenia, POA. This may related to his liver disease. However have stopped his upper for the time being we will use compressive devices for DVT prophylaxis and start physical therapy. 7. SBP prophylaxis is ongoing and will be required lifelong. This for a patient with known cirrhosis, varices and a GI bleed. Discharge planning patient will require intermediate facility as he lives alone. I have indicated so short that he is likely 1-2 days away from being able to discharge to a intermediate facility for ongoing rehabilitation services. Pain Evaluation: Adequate Pain Control VTE Prophylaxis: Sub-Q Heparin (Unfractionated) VTE Mechanical Devices: Intermittant Pneumatic CD Resuscitation Status: CPR: Attempt Resuscitation Time spent 25 minutes Jimmy Ramírez MD Nov 05, 2016 12:37
[2016-11-05] MEDS ORDERED: Furosemide 10 mg/mL 10 mL Inj IVPUSH ONE (13:05)
--- NOTE | 2016-11-05 13:11 | PCM.PNMED ---
Subjective Date of Service Nov 05, 2016 Subjective more awake and alert. stable BP. no fever/chills. LE swelling. Exam Vital Signs Vital Sign - Last Date Time Temp Pulse Resp B/P Pulse Ox O2 Delivery O2 Flow Rate FiO2 11/05/16 11:54 36.5 64 24 102/65 97 Room Air 10/31/16 20:30 3.00 Intake and Output 11/04/16 11/04/16 11/05/16 Cumulative From/Thru 15:00 23:00 07:00 10/30/16 18:14 - 11/05/16 06:42 Intake Total 2207 ml 592 ml 68707 ml Output Total 350 ml 300 ml 9290 ml Balance 1857 ml 292 ml 6626 ml Intake Oral 1400 ml 100 ml 2200 ml IV Total 807 ml 492 ml 04039 ml Tube Irrigant 420 ml Output Urine Total 350 ml 300 ml 3790 ml Other 5500 ml # Bowel Movements 2 4 16 Exam General: Well-developed, well-nourished. NAD, AAOx3. HEENT: Normocephalic, atraumatic. External ears without defect. Scleral icterus Neck: Supple. No lymphadenopathy or thyromegaly Cardiovascular: Regular rate and rhythm with no murmurs, rubs, or gallops appreciated Pulmonary: Clear to auscultation bilaterally with no crackles, wheezes, or rhonchi Abdomen: Bowel tones present. moderate abdominal distention Genitourinary: Moses in place Extremities: 2+ edema, weeping serous fluid. Lab and Diagnostics Result Diagram: 11/05/1682811/05/16828 Assessment & Plan 1. FRANCESCA on CKD - secondary to ATN. - improving. 2.Hypervolemia hypernatremia - continue d5w - will give IV lasix 60 mg x 1. - resume PO diuretic in am. 3. Hepatic encephalopathy, improving. 4. MADISON c/b ascites and EV 5. Lactic acidosis, resolved. 6. Anemia of CKD. Plan: - continue d5w - will give IV lasix 60 mg x 1. - resume PO diuretics in am. - add aranesp 60 mcg x 1. VTE Prophylaxis: Sub-Q Heparin (Unfractionated) VTE Mechanical Devices: Intermittant Pneumatic CD Resuscitation Status: CPR: Attempt Resuscitation Joi Mi MD Nov 05, 2016 13:11
[2016-11-05] MEDS: Pantoprazole 40 mg ER24 Tablet PO SCH (17:02)
--- NOTE | 2016-11-05 17:22 | NUR ---
Social Work Note: Continued Discharge Planning Data& Assessment: SW met with pt and pt daughter Nola at bedside to discuss discharge planning. PT is recommending SNF at time of discharge. Pt is previously completely independent at baseline. SNF list provided for preferences. Pt and pt daughter have decided [facility] would be their first preference. SW left a voicemail for [facility] admissions and provided access. Pt will require insurance authorization. Pt and pt daughter deny any other needs at this time. SW to continue to follow. Plan: Anticipated discharge to [facility] pending acceptance and insurance authorization when medically ready. SW to follow up with [facility] regarding acceptance. SW to continue to follow. JUAN PABLO Blanc
--- NOTE | 2016-11-05 18:10 | NUR ---
Wound Care Pt seen at bedside for wound care and dressing changes. Pt conversant and appropriate. Wounds at lower legs continue to weep copiously, yellowish thin fluid. Wounds without s/s of infection. Will trial addition of compression in hopes that lower leg dressings can be left in place 48 hrs. Will recheck on patient tomorrow.
--- NOTE | 2016-11-05 19:03 | NUR ---
Activity/incontinent/wound dressing changes pt up to [facility] with physical therapy, see PT's note. Pt incontinent of BM. Dressing to lower extremity changed by wound care. Next dressing change due on Thursday11/07/16/ per wound care.
[2016-11-05] MEDS: Sucralfate 100 mg/mL 10 mL Suspension PO SCH ×2 (22:00→22:18)
[2016-11-06] VITALS (9 sets, daily range): BP systolic 107–134; BP diastolic 58–79; PULSE 63–78; RESP 16; O2SAT 96–98
[2016-11-06] MEDS: Dextrose 5% 1,000 ML IV SCH (03:33)
[2016-11-06 04:47] LABS: Mean Corpuscular Hemoglobin 35.2 pg (27.0-35.0); Mean Corpuscular Volume 108.4 fL (81-100)
--- NOTE | 2016-11-06 05:20 | NUR ---
Output HS dose of lactulose administered, 2 large incontinent BMs this shift. Pt AOx3, able to participate in bed mobility. Pt educated to purpose of medication regimen, verbalizes understanding. VSS, tele SB/SR 50s-60s. Moses draining to gravity. Xeroform dressings changed to abdomen and bilateral upper thighs.
[2016-11-06] MEDS: Sucralfate 100 mg/mL 10 mL Suspension PO SCH ×4 (09:08→21:46)
[2016-11-06] MEDS: Pantoprazole 40 mg ER24 Tablet PO SCH ×2 (09:09→16:44)
[2016-11-06] MEDS: Lactulose 20 Gm/30 mL 30 mL Syrup TUBE SCH ×3 (09:11→20:30)
--- NOTE | 2016-11-06 12:10 | PCM.PNMED ---
Subjective Date of Service Nov 06, 2016 Subjective no acute issue overnight. blisters and weeping on LE. Exam Vital Signs Vital Sign - Last Date Time Temp Pulse Resp B/P Pulse Ox O2 Delivery O2 Flow Rate FiO2 11/06/16 08:15 73 11/06/16 08:10 36.8 16 112/69 97 Room Air 10/31/16 20:30 3.00 Intake and Output 11/05/16 11/05/16 11/06/16 Cumulative From/Thru 15:00 23:00 07:00 10/30/16 18:14 - 11/06/16 06:04 Intake Total 1124 ml 1131 ml 74199 ml Output Total 950 ml 600 ml 45895 ml Balance 174 ml 531 ml 7331 ml Intake Oral 930 ml 120 ml 3250 ml IV Total 194 ml 1011 ml 35252 ml Tube Irrigant 420 ml Output Urine Total 950 ml 600 ml 5340 ml Other 5500 ml # Bowel Movements 1 2 19 Exam General: Well-developed, well-nourished. NAD, AAOx3. HEENT: Normocephalic, atraumatic. External ears without defect. Scleral icterus Neck: Supple. No lymphadenopathy or thyromegaly Cardiovascular: Regular rate and rhythm with no murmurs, rubs, or gallops appreciated Pulmonary: Clear to auscultation bilaterally with no crackles, wheezes, or rhonchi Abdomen: Bowel tones present. moderate abdominal distention Genitourinary: Moses in place Extremities: 2+ edema, weeping serous fluid. Lab and Diagnostics Result Diagram: 11/06/1641411/06/16414 Assessment & Plan 1. FRANCESCA on CKD - secondary to ATN. - improving. 2.Hypervolemia hypernatremia 3. Hepatic encephalopathy, improving. 4. MADISON c/b ascites and EV 5. Lactic acidosis, resolved. 6. Anemia of CKD. Plan: - d/c d5w. - IV lasix 40 mg x 1 today. - BMP in am. - consider another abdominal paracentesis. VTE Prophylaxis: Sub-Q Heparin (Unfractionated) VTE Mechanical Devices: Intermittant Pneumatic CD Resuscitation Status: CPR: Attempt Resuscitation Joi Mi MD Nov 06, 2016 12:10
--- NOTE | 2016-11-06 13:44 | NUR ---
Social Work: Continued Discharge Planning D: Pt discussed in morning rounds. Pt is not medically stable for discharge at this time. Pt anticipated to be ready in 1-2 days. Pt continues to work with PT with recommendations for SNF. t/c to [facility]. OPERATIVE SUPERVISOR spoke with Luba Mcgee who states that they can accept the pt with Dr. Hairston to follow. Pt is [facility] and will require authorization. t/c from Erin at [facility] requesting update on pt's anticipated discharge; OPERATIVE SUPERVISOR updated her on potential discharge and provided RN contact information. A: Pt who will likely require SNF at time of discharge for continued rehab. P: Anticipate pt to discharge to [facility] with Dr. Hairston to follow pending authorization and clinical course. OPERATIVE SUPERVISOR to continue to follow. JUAN PABLO Rosenberg
[2016-11-06] MEDS ORDERED: Furosemide 10 mg/mL 4 mL Inj IVPUSH SCH (14:00)
--- NOTE | 2016-11-06 14:02 | PATH ---
SURGICAL PATHOLOGY Attending Physician:Jimmy Ramírez MD CASE STATUS: Signed Out PATIENT NAME: HAIDER BRITT PID: [id number] : [id number] CASE NUMBER: [id number] DATE COLLECTED:10/31/2016 00:00 SPECIMEN: Peritoneal Fluid CLINICAL HISTORY: Peritoneal Fluid ICD-10 code not given FINAL DIAGNOSIS: See diagnosis. NOTE: 1.PERITONEAL FLUID CYTOLOGY SPECIMEN (CELL BLOCK, CYTOSPIN AND THINPREP): NEGATIVE FOR MALIGNANT CELLS. CELLS PRESENT INCLUDE LYMPHOCYTES AND REACTIVE MESOTHELIAL CELLS. ICD10 CODE R18.8 GROSS DESCRIPTION: Received fresh on 11/05/2016 is approximately 55 cc of clear yellow fluid. Prepared are one cell block, one ThinPrep and one Cytospin slides. Vo ICD-9 CODES: CPT CODES: 1: 43150, 13644, 02498 Electronically Signed Out Jian Farias MD [facility] Pathology [facility] [address], [place] [address] Technical component performed at [facility], [facility] [address], [place], [address]
--- NOTE | 2016-11-06 15:45 | PCM.PNMED ---
Subjective Date of Service Nov 06, 2016 Subjective 66-year-old man with cirrhosis presents with hepatic encephalopathy and worsening anasarca, complicated by hepatorenal syndrome. Patient endorses bilateral leg pain which is present present since his worsened leg edema. Also states that abdomen feels tense. Mentally alert. No other symptoms. Exam Vital Signs Vital Sign - Last Date Time Temp Pulse Resp B/P Pulse Ox O2 Delivery O2 Flow Rate FiO2 11/06/16 12:10 36.9 67 16 107/58 96 Room Air 10/31/16 20:30 3.00 Intake and Output 11/05/16 11/05/16 11/06/16 Cumulative From/Thru 15:00 23:00 07:00 10/30/16 18:14 - 11/06/16 06:04 Intake Total 1124 ml 1131 ml 96554 ml Output Total 950 ml 600 ml 65265 ml Balance 174 ml 531 ml 7331 ml Intake Oral 930 ml 120 ml 3250 ml IV Total 194 ml 1011 ml 47750 ml Tube Irrigant 420 ml Output Urine Total 950 ml 600 ml 5340 ml Other 5500 ml # Bowel Movements 1 2 19 Exam General: Middle-age man, no acute distress HEENT: sclerae anicteric, oral mucosa moist Neck: no JVD Chest: Generally clear to auscultation Cardiac: S1S2, no murmur Abdomen: BS present, non-tender, moderate distention with flank dullness, liver edge not palpable Extremities: 3+ edema bilaterally and legs Neuro: A&Ox3 , cranial nerves symmetric, no asterixis. Motor strength 5/5, coordination normal IVs and Medications Medications Reviewed: Medications were reviewed in detail Lab and Diagnostics Result Diagram: 11/06/16 0415 11/06/16 0415 Assessment & Plan #. Acute hepatic encephalopathy, POA. Resolved. - He will require discharge with lactulose titrated to 2-3 stools per day. #. Acute kidney injury, chronic kidney disease stage IV. ATN secondary to hypovolemia and hypotension, on top of his chronic kidney disease stage IV. Urine output is ranged from 0.22-0.45 mL per KG per hour. - Nephrology following and managing diuretics at present - Consider resuming spironolactone - On midodrine at present #. Anasarca. Initial body weight 117.9 KG on admission. Now down to 114.7 KG, despite which patient feels abdomen is more bloated. He has resumed Lasix but not spironolactone yet. Urine output put seems reasonable. - Repeat therapeutic paracentesis once prior to discharge - Further management of Lasix/spironolactone and therapeutic paracentesis to be performed by his GI doc in [place] #. 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 - SBP prophylaxis - Ascites management - Encephalopathy prevention - Liver monitoring with his regular math teacher #. Mild anemia and context of recent upper GI bleed and acute blood loss anemia. No clinical evidence of rectal bleeding. - Monitor hemoglobin - We will resume Protonix twice a day and sucralfate 4 times a day. #. Thrombocytopenia, POA. This may related to his liver disease. - compressive devices for DVT prophylaxis and start physical therapy. Discharge planning patient will require alf facility as he lives alone. I have indicated so short that he is likely 1-2 days away from being able to discharge to a alf facility for ongoing rehabilitation services. VTE Mechanical Devices: Intermittant Pneumatic CD Resuscitation Status: CPR: Attempt Resuscitation Time spent 35 minutes Jewel Vernon MD Nov 06, 2016 15:19
--- NOTE | 2016-11-06 16:02 | NUR ---
NUTRITION FOLLOW UP: ASSESS: 66 YO male admitted with hepatic encephalopathy due to chronic liver disease. Diet advanced to soft per ST. Pt had paracentesis on 10/31, may undergo another one. PMHx: MADISON cirrhosis, HTN, recent GI bleed with esophageal varices identified, stage III renal disease, CAD. DIET: Soft, PO 15-100% LABS: Na 145, Cl 116, BUN 61, Glu 122, Ca 8.3, T-bili 3.6, AST 114, ALT 59, Albumin 2.4 MEDICATIONS: Reviewed. Lactulose, Protonix GI: BM x 2 (11/06). SKIN: Superficial blisters on LE and abdomen per oil fire specialist. ANTHROPOMETRICS: Current Wt: 114.7 kg, BMI: 38.4 kg/m2. IBW: 70 kg Admit Wt: 120.4 kg ESTIMATED NEEDS (LIVER DISEASE/BMI): Calories: 4685-0065 kcal/day (22-25 kcal/kg BW) Protein: 105-126 g/day (1.5-1.8 g/kg IBW) NUTRITION DIAGNOSIS: 1) Inadequate oral intake related to hepatic encephalopathy, as evidenced by NPO/Stim diet X 4 days.---IMPROVED 2) Increased nutrient needs related to wound healing/increased demand for nutrients as evidenced by chronic liver disease, wounds.---PERSISTS. INTERVENTION: 1) Will send Ensure BID to promote calore/protein intake MONITOR/EVALUATE: Diet advance/tolerance, PO intake, labs, GI/nutrition status. Follow per moderate nutrition risk guidelines.
--- NOTE | 2016-11-06 19:10 | NUR ---
Activity/Stools/Pain Patient a/o x 3, forgetful at times. Patient oob with walker and physical therapy alen fair, but c/o pain with activity. Patient declined pain meds this shift. Patient incont BM x 4 after a.m. Lactulose, afternoon dose held. Moses patent, will uop. Patient taking diet fair. VSS, tele SR. Will cont poc.
[2016-11-07 04:36] VITALS: BP 110/71; PULSE 64; RESP 16; O2SAT 98
[2016-11-07 05:10] VITALS: PULSE 58
--- NOTE | 2016-11-07 06:14 | NUR ---
Stools/Rest/Edema Pt had met the goal of 2-3 bowel movements in a 24H period during day-shift. Pt still had 2 BMs during the air defense artillery senior sergeant. Pt's scheduled night time dose of Lactulose was non-administered due to the pt already reaching the daily BM goal. Pt was able to rest through most of the air defense artillery senior sergeant. Pt had pitting edema all the way up through the pt's buttocks and thighs.
[2016-11-07 06:21] LABS: BASOPHILS % (AUTO) 0.2 % (0-3); EOSINOPHILS % (AUTO) 7.7 % (0-5); MONOCYTES % (AUTO) 14.1 % (4-12); Mean Corpuscular Hemoglobin 34.4 pg (27.0-35.0); Mean Corpuscular Volume 107.3 fL (81-100); NEUTROPHILS % (AUTO) 61.7 % (40-74); Platelet Count 44 bil/L (150-400)
[2016-11-07 06:24] LABS: Phosphorus 3.7 mg/dL (2.5-4.9)
[2016-11-07 06:45] LABS: INR 2.01 ratio
[2016-11-07 08:00] VITALS: PULSE 63
[2016-11-07] MEDS: Sucralfate 100 mg/mL 10 mL Suspension PO SCH ×3 (08:20→16:24)
[2016-11-07] MEDS: Pantoprazole 40 mg ER24 Tablet PO SCH ×2 (08:20→16:24)
[2016-11-07] MEDS: Lactulose 20 Gm/30 mL 30 mL Syrup TUBE SCH ×2 (08:22→14:30)
[2016-11-07 08:28] VITALS: BP 103/67; PULSE 70; RESP 16; O2SAT 99
--- NOTE | 2016-11-07 09:43 | NUR ---
[facility] Signed [id number]
[2016-11-07 12:00] VITALS: BP 110/70; PULSE 64; RESP 16; O2SAT 98
[2016-11-07] MEDS ORDERED: LACT10SO60 TUBE (14:03)
[2016-11-07] MEDS ORDERED: CIPR-198 PO (14:07)
--- NOTE | 2016-11-07 14:14 | PCM.DIMED ---
Discharge Instructions Date of Service Nov 07, 2016 Dates of Hospitalization Oct 30, 2016 at 21:59 Discharge Diagnosis Discharge Diagnosis Acute hepatic encephalopathy; acute kidney injury in chronic kidney disease stage IV; anasarca (severe leg edema and abdominal ascites); cirrhosis of the liver Medication Instructions Prescriptions for new medications have been transmitted to your pharmacy or you may pick them up. You should take the antibiotic ciprofloxacin once per day to prevent infections in the fluid of your belly. You should take lactulose twice per day to prevent episodes of confusion due to cirrhosis. If you experience more than 2 soft bowel movements per day then you may reduce the dose slightly. You should discontinue the antidiarrhea medicine loperamide, as this works against the effect of lactulose. Other medications are continued at the doses were taking prior to admission. This should be reviewed with her usual GI and nephrology doctors as soon as possible. Diet Renal Diet (low-sodium; low phosphorus) Activity Other (as per the physical therapy staff at [facility]) Call your provider Other (any severe symptoms) Patient Instructions [facility] transplant service has been contacted. At present, you have been removed from the active transplantation list until your [facility]ci facility in physical therapy recovery is complete. The [facility] hepatology service will contact you in the near future to arrange an appointment and a reassessment of your status. It is very important that she follow up with your kidney and liver doctors in [place] as soon as possible to review your current blood tests and medications. Your legs are painful due to severe swelling and weakened muscles. Due to liver and kidney function should be very cautious and use the minimum possible pain medications. Physical therapy is your best strategy to improve the mobility and reduce the pain in your legs Follow-up plan The patient should contact the offices of Dr. Celeste and Dr. Mcnally to schedule posthospitalization follow-up appointments within 1 week. Follow-up Provider: Artem Campo MD Follow-up with PCP in: 1 week Jewel Vernon MD Nov 07, 2016 14:05
--- NOTE | 2016-11-07 14:30 | NUR ---
Spoke with Erin at [facility] and she is reviewing patient for transfer to SNF. Updated WRAPPING MACHINE HELPER Addendum: 11/07/16 at 1438 by LINNEA BROWER CM Erin approved patient for transfer to SNF today. [facility] is accepting. Updated WRAPPING MACHINE HELPER
--- NOTE | 2016-11-07 15:55 | PCM.PNMED ---
Subjective Date of Service Nov 07, 2016 Subjective Pt's now awake and alert. persistent LE edema, (+) weeping. Exam Vital Signs Vital Sign - Last Date Time Temp Pulse Resp B/P Pulse Ox O2 Delivery O2 Flow Rate FiO2 11/07/16 12:00 36.3 64 16 110/70 98 Room Air Intake and Output 11/06/16 11/06/16 11/07/16 Cumulative From/Thru 15:00 23:00 07:00 10/30/16 18:14 - 11/07/16 06:08 Intake Total 1610 ml 849 ml 19141 ml Output Total 300 ml 750 ml 11509 ml Balance 1310 ml 99 ml 8740 ml Intake Oral 800 ml 730 ml 4780 ml IV Total 810 ml 119 ml 81428 ml Tube Irrigant 420 ml Output Urine Total 300 ml 750 ml 6390 ml Other 5500 ml # Bowel Movements 4 2 25 Exam General: Well-developed, well-nourished. NAD, AAOx3. HEENT: Normocephalic, atraumatic. External ears without defect. Scleral icterus Neck: Supple. No lymphadenopathy or thyromegaly Cardiovascular: Regular rate and rhythm with no murmurs, rubs, or gallops appreciated Pulmonary: Clear to auscultation bilaterally with no crackles, wheezes, or rhonchi Abdomen: Bowel tones present. moderate abdominal distention Genitourinary: Moses in place Extremities: 3+ edema, weeping serous fluid. Lab and Diagnostics Result Diagram: 11/07/16 0545 11/07/16 0545 Assessment & Plan 1. FRANCESCA on CKD 4 likely - baseline serum cr 2.5 in Dec - Current serum cr 3.5-4.4. - etiology of FRANCESCA: ATN, massive ascites and increases intraabdominal pressure. - unclear underlying disease: hypertensive nephrosclerosis, HRS type 2 - will resume lasix and aldactone. - no urgent HD indicated at this moment, pt will follow with his primary [facility]. - given high MELD score, will consider transferring to transplant center. - rec to repeat BMP and monitor his volume status closely. 2.Hypervolemia hypernatremia 3. Hepatic encephalopathy, resolved. 4. MADISON c/b ascites and EV - on transplant list. 5. Lactic acidosis, resolved. 6. Anemia of CKD. VTE Mechanical Devices: Intermittant Pneumatic CD Resuscitation Status: CPR: Attempt Resuscitation Joi Mi MD Nov 07, 2016 15:19
--- NOTE | 2016-11-07 17:23 | NUR ---
Wound Care Pt seen at bedside for wound care of [place] leg and abdomen wounds. Pt continues to drain significantly from leg ulcers but improved with wraps that were started 11/05/16. Kept Xeroform dressings in place on all leg wounds to decrease trauma of wound bed with dressing change, rewrapped with webril and abd pads and coban. Abdominal and thigh wounds have xeroform which was trimmed back to all that was adherent. Recommend that these dressings remain in place (xeroform) for 3 days and then have them removed while patient showers and then rewrap with xeroform, webril and coban. Wounds are stable, nonifected and healing.
--- NOTE | 2016-11-07 17:52 | NUR ---
Discharge Patient A&Ox3. Lactulose ordered TID, patient had 4+ episodes diarrhea last night so med was held this shift. VSS. Patient has open weeping blisters on abd, and LE bilaterally. Dressings changed with CORDELIA Guerrero from wound care. Patient very weak, unable to get out of bed today, c/o leg pain. PRN tramadol given with no effect. Patient to transfer to [facility] [place], daughter is aware. Report called to CORDELIA Jeffery at [facility]. PICC DC'd by IV therapy RN. Josué left in place per MD. Patient left unit via wc and transport to [facility] via the facility vehicle.
--- NOTE | 2016-11-07 18:39 | PCM.DC.MED ---
Discharge Summary Date of Service Nov 07, 2016 Dates of Hospitalization Date of Hospital Admission Oct 30, 2016 at 21:59 Date of Discharge: Nov 07, 2016 Providers: Admitting Physician: Joshua Wagner MD Primary Care Physician: Artem Campo MD Attending Physician: Joshua Wagner MD Diagnosis at Time of Discharge Diagnosis at Time of Discharge Acute hepatic encephalopathy; acute kidney injury in chronic kidney disease stage IV; anasarca (severe leg edema and abdominal ascites); cirrhosis of the liver Consultations Nephrology: Xavier Navas M.D., Wanwarat MD . . Procedures XRay, CTs & MRIs PROCEDURE: X-RAY CHEST ONE VIEW, PORTABLE ([id number]) IMPRESSION: No acute cardiopulmonary disease process. Dictated by: Daysi Moreno MD, PhD on 10/30/2016 at 19:01 PROCEDURE: CT BRAIN WITHOUT CONTRAST ([id number]) IMPRESSION: 1. No acute intracranial disease process. 2. Bilateral external auditory canal soft tissue density lesions. Recommend direct visualization to differentiate earwax from malignancy. Dictated by: Daysi Moreno MD, PhD on 10/30/2016 at 19:52 PROCEDURE: US GUIDED PARACENTESIS, PRIMARY ([id number]) FINDINGS: Access site: Right lower quadrant Needle: One-Step centesis catheter with introducer needle. Fluid volume and description: 5620 serous clear fluid Fluid sent for diagnostic testing: At the request of the ordering health care provider Medications: 1% lidocaine for local anaesthesia. Complications: None. IMPRESSION: Successful ultrasound-guided paracentesis. Dictated by: Jaxson Lim M.D. on 11/04/2016 at 12:11 Other Diagnostics PATIENT NAME: HAIDER BRITT CASE NUMBER: [id number] DATE COLLECTED:10/31/2016 00:00 SPECIMEN: Peritoneal Fluid 1.PERITONEAL FLUID CYTOLOGY SPECIMEN (CELL BLOCK, CYTOSPIN AND THINPREP): NEGATIVE FOR MALIGNANT CELLS. CELLS PRESENT INCLUDE LYMPHOCYTES AND REACTIVE MESOTHELIAL CELLS. GROSS DESCRIPTION: Received fresh on 11/05/2016 is approximately 55 cc of clear yellow fluid. Prepared are one cell block, one ThinPrep and one Cytospin slides. Vo Electronically Signed Out Jian Farias MD [facility] [address] [place] [id number] . Brief History History of Present Illness (per admission note): Patient is a 66-year-old male with [place] cirrhosis, chronic kidney disease, CAD , hypertension and recent GI bleed secondary to esophageal varices presenting with altered mental status. Much of the history is obtained from review of medical records as the patient is minimally responsive and no family is available at bedside. The patient was reportedly found by his neighbor with decreased level of consciousness. According to reports in the ED, the patient's daughter states that the patient was in usual state of health yesterday. The patient was recently discharged from [facility] on 10/27/2015 for GI bleed. EGD and colonoscopy were performed during that hospitalization, which identified grade 2 esophageal varices without recent stigmata of bleed, distal erosive esophagitis, mild portal hypertensive gastropathy, mild nonerosive gastritis and nonbleeding sigmoid diverticulosis. In the ED, vitals: 36.6, HR 76, RR 24 satting 100% on 2L nasal cannula, BP 124/ 98. Notable labs: WBC 13.2, BUN 47, creatinine 4.22. T bili 5.1, AST 65, ALT 32 , alk phos 81. Ammonia 401. Total CK 998. NG tube was placed in the ED and patient received 60g lactulose. Hospital Course #. Acute hepatic encephalopathy, POA. Resolved. He will require discharge with lactulose titrated to 2-3 stools per day. #. Acute kidney injury, chronic kidney disease stage IV. ATN secondary to hypovolemia and hypotension, on top of his chronic kidney disease stage IV. Urine output is ranged from 0.22-0.45 mL per KG per hour. Nephrology wardrobe image consultant managed albumin infusion, octreotide infusion and middle dream. Serum creatinine on admission 4.51 showed no significant improvement and was 4.40 at time of discharge. Her most recent serum creatinines prior to this admission were in range of 2.5-3.0. - Resume outpatient regimen: Spironolactone 25, furosemide 20 with prompt follow -up at nephrology Dr. Shannan Mcanlly in [place] #. Anasarca. Initial body weight 117.9 KG on admission. Now down to 114.7 KG, despite which patient feels abdomen is more bloated. He had difficulty ambulating due to swelling and discomfort in legs. Physical therapy recommended rehabilitation at SNF prior to return home. - Resume diuretic regimen - Patient is referred to his cylinder filler Dr. Celeste in [place] for further paracentesis if needed #. Liver cirrhosis, acute on chronic. Presumed secondary to an OC. Other than encephalopathy there did not appear to be acute decompensation. Paracentesis revealed 60 PMNs. Cytology was negative. Meld score is 32 at time of discharge, total bilirubin 3.6, INR 2.0, creatinine 4.4. There is no evidence of GI bleeding during this hospitalization. Encephalopathy responded promptly to low-dose therapy. He was prescribed ciprofloxacin for SBP prophylaxis -Follow-up with Dr. Celeste; phone call placed to covering partner at [facility] was advised of the status of this case. - [facility] transplant service was contacted. They will contact patient for follow-up appointment. They advised that he will be temporarily taken off of active transplant status due to his alf facility admission for deconditioning. Patient was informed of this. #. Mild anemia and context of recent upper GI bleed and acute blood loss anemia. No clinical evidence of rectal bleeding. - Monitor hemoglobin - We will resume Protonix twice a day and sucralfate 4 times a day. #. Thrombocytopenia, POA. This may related to his liver disease. - compressive devices for DVT prophylaxis and start physical therapy. #. Deconditioning and critical illness myopathy. Discharge planning patient will require alf facility as he lives alone. - Discharged to [facility] [place] in [facility] with Dr. Andrzej Hairston attending Exam Vital Signs (Last) Date Time Temp Pulse Resp B/P Pulse Ox O2 Delivery O2 Flow Rate FiO2 11/07/16 12:00 36.3 64 16 110/70 98 Room Air Exam General: Middle-age man, no acute distress HEENT: sclerae anicteric, oral mucosa moist Neck: no JVD Chest: clear to auscultation Cardiac: S1S2, no murmur Abdomen: BS present, non-tender, marked distention with flank dullness, liver edge not palpable Extremities: 3+ edema bilaterally and legs, areas of desquamated superficial epidermis bandaged Neuro: A&Ox3 , cranial nerves symmetric, no asterixis. Test 10/30/16 18:10 10/30/16 18:25 10/30/16 21:30 10/31/16 04:30 Hold Rm Top Tube Received (Received) Procalcitonin 0.57ng/mL (See Comment) Thyroid Stimulating Hormone (TSH) 2.060uIU/mL (0.450-4.500) Alcohol, Quantitative < 10mg/dL (0-10) Urine Opiates Screen Negative Urine Methadone Screen Negative Urine Barbiturates Screen Negative Urine Amphetamines Screen Negative Urine Benzodiazepines Screen Negative Urine Cocaine Metabolite Screen Negative Urine Cannabinoids Screen Negative Total Creatine Kinase 5767U/L (21-232) Test 10/31/16 15:30 11/01/16 05:20 11/02/16 18:13 11/03/16 04:00 Body Fluid Source Peritoneal fluid Body Fluid Color Straw (Clear) Body Fluid Appearance Clear Body Fluid WBC 84/mm3 Body Fluid RBC 75/mm3 Body Fluid Polynuclear WBCs 52% Body Fluid Lymphocytes 36% Body Fluid Monocytes 12% Body Fluid Eosinophils 0% Body Fluid Basophils 0% Pro-B-Type Natriuretic Peptide 4925pg/mL (0-376) Lactic Acid Level 1.9mmol/L (0.4-2.0) Hepatitis A IgM Antibody Negative (Negative) Hepatitis B Surface Antigen Negative (Negative) Hepatitis B Core IgM Antibody Negative (Negative) Hepatitis C Antibody <0.1s/co ratio (0.0-0.9) Hepatitis C Comment Comment (.) Test 11/03/16 14:30 11/04/16 03:10 11/05/16 08:29 11/06/16 04:15 Urine Color Yellow (YELLOW) Urine Appearance Hazy (CLEAR,HAZY) Urine pH 5.5 (5.0-8.0) Urine Specific Warren 1.020 (1.003-1.035) Urine Protein Tracemg/dL (NEG,TRACE) Urine Glucose (UA) Negativemg/dL (NEGATIVE) Urine Ketones Negativemg/dL (NEGATIVE) Urine Occult Blood Large (NEGATIVE) Urine Nitrite Negative (NEGATIVE) Urine Bilirubin Negative (NEGATIVE) Urine Urobilinogen Normalmg/dL (NORMAL) Urine Leukocyte Esterase Negative (NEGATIVE) Urine RBC >50/hpf (0-2) Urine WBC 0-5/hpf (0-5) Urine Epithelial Cells Occasional/hpf (NONE-MOD) Urine Crystals Oxalic acid crystals (NONE Urine Bacteria None/hpf (NONE-FEW) Urine Hyaline Casts None/lpf (NONE) Urine Granular Casts Occasional (NONE SEEN) Urine Waxy Casts None seen (NONE SEEN) Urine Red Blood Cell Casts None seen (NONE SEEN) Urine White Blood Cell Casts None seen (NONE SEEN) Urine Mucus Present (None Seen) Urine Trichomonas None seen (NONE SEEN) Urine Yeast None (NONE SEEN) Urinalysis Comment None Urine Culture Reflexed Not indicated Urine Random Creatinine 167mg/dL (22-328) Urine Random Total Protein 32mg/dL (0-15) Urine Random Sodium 19mEq/L Magnesium Level 2.0mg/dL (1.6-2.6) Iron Level 60ug/dL (35-150) Total Iron Binding Capacity 68ug/dL (250-450) Percent Iron Saturation 88%sat (15-50) Unsaturated Iron Binding 8.4ug/dL Ferritin 484ng/mL (30-400) Vitamin B12 Level >1999pg/mL (211-946) Folate 10.9ng/mL (>3.0) Ammonia 63ug/dL (18-53) Estimat Glomerular Filtration Rate 17mL/min (>59) Total Bilirubin 3.6mg/dL (0.0-1.2) Aspartate Amino Transf (AST/SGOT) 114U/L (0-50) Alanine Aminotransferase (ALT/SGPT) 59U/L (0-44) Alkaline Phosphatase 65U/L (25-160) Total Protein 6.1g/dL (6.4-8.4) Test 11/07/16 05:45 White Blood Count 4.8th/mm3 (3.8-10.1) Red Blood Count 2.47mil/mm3 (4.40-5.80) Hemoglobin 8.5g/dL (13.8-17.2) Hematocrit 26.5% (41.0-50.0) Mean Corpuscular Volume 107.3fL (81-100) Mean Corpuscular Hemoglobin 34.4pg (27.0-35.0) Mean Corpuscular Hemoglobin Concent 32.1% (32.0-37.0) Red Cell Distribution Width 15.9% (12.3-15.4) Platelet Count 44bil/L (150-400) Neutrophils (%) (Auto) 61.7% (40-74) Lymphocytes (%) (Auto) 15.9% (14-46) Monocytes (%) (Auto) 14.1% (4-12) Eosinophils (%) (Auto) 7.7% (0-5) Basophils (%) (Auto) 0.2% (0-3) Prothrombin Time 21.8sec (8.1-12.5) Prothromb Time International Ratio 2.01ratio Activated Partial Thromboplast Time 48.6sec (22.8-33.0) Sodium Level 143mEq/L (134-144) Potassium Level 4.1mEq/L (3.5-5.2) Chloride Level 112mEq/L (97-108) Carbon Dioxide Level 20mmol/L (18-29) Blood Urea Nitrogen 63mg/dL (8-27) Creatinine 4.40mg/dL (0.76-1.27) Glucose Level 87mg/dL (60-99) Calcium Level 8.0mg/dL (8.5-10.1) Phosphorus Level 3.7mg/dL (2.5-4.9) Albumin 2.0g/dL (3.4-5.0) Discharge Medications Discharge Medications Cholecalciferol (Vitamin D3) (Vitamin D3) 400 Unit Tablet 1,200 UNIT PO DAILY ( Reported) Ciprofloxacin (Ciprofloxacin) 500 Mg Tablet 500 MG PO DAILY Prescribed by: QUEENIE ALEXANDER MD Furosemide (Furosemide) 20 Mg Tab 20 MG PO DAILY (Reported) Lactulose (Lactulose) 20 Gm/30 Ml Solution 20 GM TUBE TID Prescribed by: QUEENIE ALEXANDER MD Multivitamin (Multivitamins) 1 Each Capsule 1 EACH PO DAILY (Reported) Nadolol (Nadolol) 80 Mg Tablet 80 MG PO DAILY (Reported) Pantoprazole (Pantoprazole DR) 40 Mg Tablet.dr 40 MG PO BID Prescribed by: SORIN SULLIVAN MD Spironolactone (Spironolactone) 50 Mg Tablet 25 MG PO DAILY (Reported) Sucralfate (Carafate) 1 Gm Tablet 1,000 MG PO QID Prescribed by: SORIN SULLIVAN MD As needed Hydrocodone-Acetaminophen 5-325 mg (Hydrocodone-Acetaminophen 5-325 mg) 1 Each Tablet 1-2 TAB PO TID PRN PRN For Pain (Reported) Additional med instructions Prescriptions for new medications have been transmitted to your pharmacy or you may pick them up. You should take the antibiotic ciprofloxacin once per day to prevent infections in the fluid of your belly. You should take lactulose twice per day to prevent episodes of confusion due to cirrhosis. If you experience more than 2 soft bowel movements per day then you may reduce the dose slightly. You should discontinue the antidiarrhea medicine loperamide, as this works against the effect of lactulose. Other medications are continued at the doses were taking prior to admission. This should be reviewed with her usual GI and nephrology doctors as soon as possible. Followup Plan Disposition: [facility] Follow-up plan The patient should contact the offices of Dr. Celeste and Dr. Mcnally to schedule posthospitalization follow-up appointments within 1 week. Discharge Diet: Renal Diet (low-sodium; low phosphorus) Discharge Activity: Other (as per the physical therapy staff at [facility]) Patient Instructions [facility] transplant service has been contacted. At present, you have been removed from the active transplantation list until your alf facility in physical therapy recovery is complete. The [facility] hepatology service will contact you in the near future to arrange an appointment and a reassessment of your status. It is very important that she follow up with your kidney and liver doctors in [place] as soon as possible to review your current blood tests and medications. Your legs are painful due to severe swelling and weakened muscles. Due to liver and kidney function should be very cautious and use the minimum possible pain medications. Physical therapy is your best strategy to improve the mobility and reduce the pain in your legs Follow-up Provider: Artem Campo MD Follow-up with PCP in: 1 week Time spent 45 minutes spent in patient assessment in care coordination including conversation with outpatient physicians. copies to: Dr. Mike Jamison; Dr. Nataliia Degroot; Artem Campo MD; Chava Hairston MD; [facility], Hepatology service Queenie Alexander MD Nov 07, 2016 14:18
== END 2016-11-07 17:34 | DRG 442 ==
LOC: SED 18:14 → CCU 21:59 → PCC 11-01 14:52
PROVIDERS: ADMIT Internal Medicine; ATTEND Internal Medicine
PROC: 0W9G3ZX Drainage of Peritoneal Cavity, Percutaneous Approach, Diagnostic (ICD-10-PCS; principal; 2016-10-31)
DX: K72.00 Acute and subacute hepatic failure without coma (principal); N17.9 Acute kidney failure, unspecified; N18.4 Chronic kidney disease, stage 4 (severe); R18.8 Other ascites; E87.2 Acidosis; E87.0 Hyperosmolality and hypernatremia; N11.9 Chronic tubulo-interstitial nephritis, unspecified; I25.10 Atherosclerotic heart disease of native coronary artery without angina pectoris; I12.9 Hypertensive chronic kidney disease with stage 1 through stage 4 chronic kidney disease, or unspecified chronic kidney disease; K74.69 Other cirrhosis of liver; D69.6 Thrombocytopenia, unspecified; D63.1 Anemia in chronic kidney disease